=== PATIENT | female | born 1965 | race African-American/Black ===

== ENCOUNTER 2018-04-07 14:47 | Inpatient (IN) | payer OTHER ==
[2018-04-07 18:16] VITALS: BMI 25.4
[2018-04-07] MEDS ORDERED: ACETAMINOPHEN 325 MG TABLET (FP) PO PRN (19:57)
[2018-04-07] MEDS ORDERED: guaiFENesin/D-METHORPHAN HB 10 ML UNIT-DOSE CUPS PO PRN (19:57)
[2018-04-07] MEDS ORDERED: P-EPHED 60MG/TRIPROLIDI 2.5MG TABLET PO PRN (19:57)
[2018-04-07] MEDS ORDERED: MAG HYDROX/AL HYDROX/SIMETH 30 ML UNIT-DOSE CUP PO PRN (19:57)
[2018-04-07] MEDS ORDERED: MENTHOL/PHENOL 1 EACH UD MM PRN (19:57)
[2018-04-07] MEDS ORDERED: MAGNESIUM CITRATE 300 ML BOTTLE PO PRN (19:57)
--- NOTE | 2018-04-07 19:57 | HP ---
Admission [facility] Allergies/Adverse Reactions: Allergies Allergy/AdvReac Type Severity Reaction Status Date / Time No Known Allergies Allergy Verified 04/07/18 18:03 History of Present Illness: pt here requesting rehab from crack cocaine and etoh use , s/p detox @ [facility] completed today , has d/c paperwork available for review. Reports used to drink all day x 3 years , denies seizures, blackouts , falls . tobacco use : 1 ppd , requesting nrt w/ patch pmhx : knee OA bilaterally , asthma ( hospialized , [place] ) does not have inhaler pshx :denies psych : depression, anxiety utox + bzo Shx : homeless , unemployed - Ebola screening Have you traveled outside of the country in the last 21 days: No Have you had contact with anyone from an Ebola affected area: No Have you been sick,other than usual withdrawal symptoms: No Do you have a fever: No - Review of Systems Constitutional: See HPI EENT: reports: See HPI Respiratory: reports: See HPI Cardiac: reports: No Symptoms Reported GI: reports: No Symptoms Reported : reports: No Symptoms Reported Musculoskeletal: reports: Joint Pain, Joint Swelling, Muscle Pain, Joint Stiffness Integumentary: reports: No Symptoms Reported Neuro: reports: No Symptoms reported Endocrine: reports: No Symptoms Reported Psychiatric: reports: Anxious, Depressed Patient History - Smoking Cessation Smoking history: Current every day smoker Have you smoked in the past 12 months: Yes Aproximately how many cigarettes per day: 20 Hx Chewing Tobacco Use: No Initiated information on smoking cessation: No - Substances Abused Alcohol Route: Oral Frequency: Daily Amount used: 12pk beer Age of first use: 18 Date of Last Use: 04/04/18 Crack Route: Smoking Frequency: Daily Amount used: $300 Age of first use: 19 Date of Last Use: 04/04/18 Family Disease History - Family Disease History Family History: Denies Admission Physical Exam [facility] - Vital Signs Vital Signs: Vital Signs - 24 hr 04/07/18 18:03 Temperature 97.8 F Pulse Rate 80 Respiratory 18 Rate Blood Pressure 140/80 - Physical General Appearance: Yes: No Apparent Distress, Anxious HEENTM: Yes: Hearing grossly Normal, Normocephalic, Normal Voice Respiratory: Yes: Chest Non-Tender, Lungs Clear, Normal Breath Sounds Neck: Yes: No masses,lesions,Nodules, Trachea in good position Cardiology: Yes: Regular Rhythm, Regular Rate Abdominal: Yes: Within Normal Limits Genitourinary: Yes: Within Normal Limits Back: Yes: Normal Inspection Musculoskeletal: Yes: Joint Stiffness, Other (antalgic gait, limping - has had chronic knee pain for years , known OA) Extremities: Yes: Normal Capillary Refill Neurological: Yes: Fully Oriented, Alert, Normal Response - Diagnostic (1) Alcohol dependence in early, early partial, sustained full, or sustained partial remission Current Visit: Yes Status: Acute (2) Nicotine dependence Current Visit: Yes Status: Acute BHS Breath Alcohol Content Breath Alcohol Content: 0 Urine Pregancy Test - Result Urine Test Results: Negative- NO Line Present Urine Drug Screen - Results Drug Screen Negative: No Urine Drug Screen Results: BZO-Benzodiazepines
[2018-04-07] MEDS ORDERED: traZODone HCL 50 MG TABLET (FP) PO ONE (19:59)
[2018-04-07] MEDS: NAPROXEN 500 MG TABLET (FP) PO SCH (21:57)
[2018-04-07] MEDS: THIAMINE HCL 100 MG TABLET (FP) PO SCH (21:57)
[2018-04-07] MEDS ORDERED: MELATONIN 5 MG TABLETS PO PRN (22:00)
[2018-04-08 10:08] LABS: URINE APPEARANCE SLCLOUDY; URINE BILIRUBIN NEGATIVE (<2.0 mg/dL); URINE COLOR LTYELLOW; URINE GLUCOSE (UA) NEGATIVE (NEGATIVE); URINE KETONE NEGATIVE (NEGATIVE); URINE LEUK ESTERASE NEGATIVE (NEGATIVE); URINE NITRITE NEGATIVE (NEGATIVE); URINE PROTEIN NEGATIVE (NEGATIVE); URINE UROBILINOGEN NEGATIVE mg/dL (0.2-1.0)
[2018-04-08] MEDS: NICOTINE 14 MG/24 HOURS TOPICAL PATCH TD SCH (10:21)
[2018-04-08] MEDS: PRENATAL VITAMINS W/ FOLIC ACID TABLET (FP) PO SCH (10:21)
[2018-04-08] MEDS: NAPROXEN 500 MG TABLET (FP) PO SCH ×2 (10:21→21:04)
[2018-04-08] MEDS: VITAMINS A AND D TOPICAL OINTMENT 60 GM TUBE TP SCH ×2 (12:28→17:33)
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
[2018-04-08] MEDS ORDERED: TUBERCULIN PPD 5 TU/0.1ML VIAL ID ONE (13:58)
[2018-04-08 15:13] LABS: HEMATOCRIT 36.8 % (32.4-45.2); HEMOGLOBIN 11.9 GM/dL (10.7-15.3); MCH 30.4 pg (25.7-33.7); MCHC 32.3 g/dl (32.0-36.0); MEAN PLT VOLUME 8.9 fl (7.5-11.1); PLATELET COUNT 188 K/MM3 (134-434); RBC 3.91 M/mm3 (3.60-5.2); RDW 13.7 % (11.6-15.6); WHITE BLOOD COUNT 4.2 K/mm3 (4.0-10.0)
[2018-04-08 15:18] LABS: ALBUMIN 3.3 g/dl (3.4-5.0); ALK PHOS 83 U/L (45-117); ANION GAP 11 MMOL/L (8-16); BILIRUBIN,TOTAL 0.3 mg/dL (0.2-1); BLOOD UREA NITROGEN 12 mg/dL (7-18); CALCIUM 8.4 mg/dL (8.5-10.1); CHLORIDE 107 mmol/L (98-107); CO2 24 mmol/L (21-32); GLUCOSE,RANDOM 111 mg/dL (74-106); POTASSIUM 4.1 mmol/L (3.5-5.1); SGOT/AST 50 U/L (15-37); SGPT/ALT 89 U/L (13-61); SODIUM 141 mmol/L (136-145); TOT PROT 6.7 g/dl (6.4-8.2)
[2018-04-08] MEDS: QUEtiapine FUMARATE 50 MG TABLET PO SCH (21:04)
[2018-04-08] MEDS: THIAMINE HCL 100 MG TABLET (FP) PO SCH (21:04)
[2018-04-08] MEDS: traZODone HCL 50 MG TABLET (FP) PO SCH (21:04)
[2018-04-09] MEDS: VITAMINS A AND D TOPICAL OINTMENT 60 GM TUBE TP SCH ×4 (00:23→19:13)
[2018-04-09] MEDS: PRENATAL VITAMINS W/ FOLIC ACID TABLET (FP) PO SCH (10:06)
[2018-04-09] MEDS: NICOTINE 14 MG/24 HOURS TOPICAL PATCH TD SCH (10:06)
[2018-04-09] MEDS: NAPROXEN 500 MG TABLET (FP) PO SCH ×2 (10:06→21:02)
[2018-04-09] MEDS: LORATADINE 10 MG TABLET PO SCH (16:02)
[2018-04-09] MEDS: THIAMINE HCL 100 MG TABLET (FP) PO SCH (21:03)
[2018-04-09] MEDS: traZODone HCL 50 MG TABLET (FP) PO SCH (21:03)
[2018-04-09] MEDS: QUEtiapine FUMARATE 50 MG TABLET PO SCH (22:06)
[2018-04-10] MEDS: VITAMINS A AND D TOPICAL OINTMENT 60 GM TUBE TP SCH ×4 (00:39→18:00)
[2018-04-10] MEDS: hydrOXYzine PAMOATE 25 MG CAPSULE (FP) PO PRN ×2 (03:17→21:27)
[2018-04-10] MEDS: NICOTINE 14 MG/24 HOURS TOPICAL PATCH TD SCH (10:11)
[2018-04-10] MEDS: PRENATAL VITAMINS W/ FOLIC ACID TABLET (FP) PO SCH (10:11)
[2018-04-10] MEDS: NAPROXEN 500 MG TABLET (FP) PO SCH ×2 (10:11→21:27)
[2018-04-10] MEDS: LORATADINE 10 MG TABLET PO SCH (10:11)
[2018-04-10] MEDS: THIAMINE HCL 100 MG TABLET (FP) PO SCH (21:27)
[2018-04-10] MEDS: traZODone HCL 50 MG TABLET (FP) PO SCH (21:27)
[2018-04-10] MEDS: QUEtiapine FUMARATE 50 MG TABLET PO SCH (21:27)
[2018-04-11] MEDS: VITAMINS A AND D TOPICAL OINTMENT 60 GM TUBE TP SCH ×4 (06:18→18:00)
[2018-04-11] MEDS: NAPROXEN 500 MG TABLET (FP) PO SCH ×2 (10:08→21:03)
[2018-04-11] MEDS: NICOTINE 14 MG/24 HOURS TOPICAL PATCH TD SCH (10:08)
[2018-04-11] MEDS: LORATADINE 10 MG TABLET PO SCH (10:08)
[2018-04-11] MEDS: PRENATAL VITAMINS W/ FOLIC ACID TABLET (FP) PO SCH (10:08)
[2018-04-11] MEDS: hydrOXYzine PAMOATE 25 MG CAPSULE (FP) PO PRN ×2 (10:09→21:03)
[2018-04-11] MEDS: THIAMINE HCL 100 MG TABLET (FP) PO SCH (21:03)
[2018-04-11] MEDS: traZODone HCL 50 MG TABLET (FP) PO SCH (21:03)
[2018-04-11] MEDS: QUEtiapine FUMARATE 50 MG TABLET PO SCH (21:04)
[2018-04-12] MEDS: VITAMINS A AND D TOPICAL OINTMENT 60 GM TUBE TP SCH ×4 (05:53→17:58)
[2018-04-12] MEDS: ALBUTEROL SO4 8 GM HFA INHALER IH PRN (07:20)
[2018-04-12] MEDS: PRENATAL VITAMINS W/ FOLIC ACID TABLET (FP) PO SCH (10:21)
[2018-04-12] MEDS: LORATADINE 10 MG TABLET PO SCH (10:21)
[2018-04-12] MEDS: NAPROXEN 500 MG TABLET (FP) PO SCH ×2 (10:21→21:06)
[2018-04-12] MEDS: NICOTINE 14 MG/24 HOURS TOPICAL PATCH TD SCH (10:21)
[2018-04-12] MEDS: hydrOXYzine PAMOATE 25 MG CAPSULE (FP) PO PRN (21:06)
[2018-04-12] MEDS: THIAMINE HCL 100 MG TABLET (FP) PO SCH (21:06)
[2018-04-12] MEDS: QUEtiapine FUMARATE 50 MG TABLET PO SCH (21:06)
[2018-04-12] MEDS: traZODone HCL 50 MG TABLET (FP) PO SCH (21:06)
[2018-04-12] MEDS: MAGNESIUM HYDROX 2400MG/30ML ORAL SUSPENSION 30 ML CUP PO PRN (21:06)
[2018-04-13] MEDS: VITAMINS A AND D TOPICAL OINTMENT 60 GM TUBE TP SCH ×4 (00:31→18:35)
[2018-04-13] MEDS: NAPROXEN 500 MG TABLET (FP) PO SCH ×2 (10:28→21:13)
[2018-04-13] MEDS: PRENATAL VITAMINS W/ FOLIC ACID TABLET (FP) PO SCH (10:28)
[2018-04-13] MEDS: LORATADINE 10 MG TABLET PO SCH (10:28)
[2018-04-13] MEDS: hydrOXYzine PAMOATE 25 MG CAPSULE (FP) PO PRN ×2 (10:28→21:14)
[2018-04-13] MEDS: NICOTINE 14 MG/24 HOURS TOPICAL PATCH TD SCH (10:28)
[2018-04-13] MEDS: THIAMINE HCL 100 MG TABLET (FP) PO SCH (21:12)
[2018-04-13] MEDS: QUEtiapine FUMARATE 50 MG TABLET PO SCH (21:13)
[2018-04-13] MEDS: traZODone HCL 50 MG TABLET (FP) PO SCH (21:13)
[2018-04-14] MEDS: VITAMINS A AND D TOPICAL OINTMENT 60 GM TUBE TP SCH ×3 (06:24→18:00)
[2018-04-14] MEDS: PRENATAL VITAMINS W/ FOLIC ACID TABLET (FP) PO SCH (10:09)
[2018-04-14] MEDS: NAPROXEN 500 MG TABLET (FP) PO SCH ×2 (10:09→22:51)
[2018-04-14] MEDS: NICOTINE 14 MG/24 HOURS TOPICAL PATCH TD SCH (10:09)
[2018-04-14] MEDS: LORATADINE 10 MG TABLET PO SCH (10:09)
[2018-04-14] MEDS: QUEtiapine FUMARATE 50 MG TABLET PO SCH (21:06)
[2018-04-14] MEDS: traZODone HCL 50 MG TABLET (FP) PO SCH (21:06)
[2018-04-14] MEDS: hydrOXYzine PAMOATE 25 MG CAPSULE (FP) PO PRN (21:06)
[2018-04-14] MEDS: THIAMINE HCL 100 MG TABLET (FP) PO SCH (21:06)
[2018-04-15] MEDS: VITAMINS A AND D TOPICAL OINTMENT 60 GM TUBE TP SCH ×4 (06:27→17:26)
[2018-04-15] MEDS: LORATADINE 10 MG TABLET PO SCH (09:53)
[2018-04-15] MEDS: NAPROXEN 500 MG TABLET (FP) PO SCH ×2 (09:53→21:11)
[2018-04-15] MEDS: NICOTINE 14 MG/24 HOURS TOPICAL PATCH TD SCH (09:53)
[2018-04-15] MEDS: PRENATAL VITAMINS W/ FOLIC ACID TABLET (FP) PO SCH (09:53)
[2018-04-15] MEDS: traZODone HCL 50 MG TABLET (FP) PO SCH (21:11)
[2018-04-15] MEDS: THIAMINE HCL 100 MG TABLET (FP) PO SCH (21:11)
[2018-04-15] MEDS: QUEtiapine FUMARATE 50 MG TABLET PO SCH (21:11)
[2018-04-15] MEDS: hydrOXYzine PAMOATE 25 MG CAPSULE (FP) PO PRN (21:13)
[2018-04-16] MEDS: VITAMINS A AND D TOPICAL OINTMENT 60 GM TUBE TP SCH ×3 (06:14→19:02)
[2018-04-16] MEDS: NICOTINE 14 MG/24 HOURS TOPICAL PATCH TD SCH (10:08)
[2018-04-16] MEDS: PRENATAL VITAMINS W/ FOLIC ACID TABLET (FP) PO SCH (10:08)
[2018-04-16] MEDS: NAPROXEN 500 MG TABLET (FP) PO SCH ×2 (10:08→21:02)
[2018-04-16] MEDS: LORATADINE 10 MG TABLET PO SCH (10:08)
[2018-04-16] MEDS: traZODone HCL 50 MG TABLET (FP) PO SCH (21:02)
[2018-04-16] MEDS: THIAMINE HCL 100 MG TABLET (FP) PO SCH (21:02)
[2018-04-16] MEDS: QUEtiapine FUMARATE 50 MG TABLET PO SCH (21:02)
[2018-04-16] MEDS: hydrOXYzine PAMOATE 25 MG CAPSULE (FP) PO PRN (21:03)
[2018-04-17] MEDS: VITAMINS A AND D TOPICAL OINTMENT 60 GM TUBE TP SCH ×4 (06:10→21:17)
[2018-04-17] MEDS: PRENATAL VITAMINS W/ FOLIC ACID TABLET (FP) PO SCH (10:05)
[2018-04-17] MEDS: NAPROXEN 500 MG TABLET (FP) PO SCH ×2 (10:05→21:19)
[2018-04-17] MEDS: LORATADINE 10 MG TABLET PO SCH (10:05)
[2018-04-17] MEDS: NICOTINE 14 MG/24 HOURS TOPICAL PATCH TD SCH (10:05)
[2018-04-17] MEDS: hydrOXYzine PAMOATE 25 MG CAPSULE (FP) PO PRN ×2 (10:06→21:19)
[2018-04-17] MEDS: QUEtiapine FUMARATE 50 MG TABLET PO SCH (21:19)
[2018-04-17] MEDS: traZODone HCL 50 MG TABLET (FP) PO SCH (21:19)
[2018-04-17] MEDS: THIAMINE HCL 100 MG TABLET (FP) PO SCH (21:19)
[2018-04-18] MEDS: VITAMINS A AND D TOPICAL OINTMENT 60 GM TUBE TP SCH ×4 (00:55→17:45)
[2018-04-18] MEDS: LORATADINE 10 MG TABLET PO SCH (09:56)
[2018-04-18] MEDS: NAPROXEN 500 MG TABLET (FP) PO SCH ×2 (09:56→21:55)
[2018-04-18] MEDS: NICOTINE 14 MG/24 HOURS TOPICAL PATCH TD SCH (09:56)
[2018-04-18] MEDS: PRENATAL VITAMINS W/ FOLIC ACID TABLET (FP) PO SCH (09:56)
[2018-04-18] MEDS: THIAMINE HCL 100 MG TABLET (FP) PO SCH (21:55)
[2018-04-18] MEDS: traZODone HCL 50 MG TABLET (FP) PO SCH (21:55)
[2018-04-18] MEDS: QUEtiapine FUMARATE 50 MG TABLET PO SCH (21:55)
[2018-04-18] MEDS: hydrOXYzine PAMOATE 25 MG CAPSULE (FP) PO PRN (21:56)
[2018-04-19] MEDS: VITAMINS A AND D TOPICAL OINTMENT 60 GM TUBE TP SCH ×4 (01:04→18:04)
[2018-04-19] MEDS: PRENATAL VITAMINS W/ FOLIC ACID TABLET (FP) PO SCH (09:23)
[2018-04-19] MEDS: LORATADINE 10 MG TABLET PO SCH (09:23)
[2018-04-19] MEDS: NAPROXEN 500 MG TABLET (FP) PO SCH ×2 (09:23→21:08)
[2018-04-19] MEDS: NICOTINE 14 MG/24 HOURS TOPICAL PATCH TD SCH (09:23)
[2018-04-19] MEDS: THIAMINE HCL 100 MG TABLET (FP) PO SCH (21:08)
[2018-04-19] MEDS: QUEtiapine FUMARATE 50 MG TABLET PO SCH (21:08)
[2018-04-19] MEDS: traZODone HCL 50 MG TABLET (FP) PO SCH (21:08)
[2018-04-20] MEDS: VITAMINS A AND D TOPICAL OINTMENT 60 GM TUBE TP SCH ×4 (06:30→18:00)
[2018-04-20] MEDS: NAPROXEN 500 MG TABLET (FP) PO SCH ×2 (10:09→21:06)
[2018-04-20] MEDS: PRENATAL VITAMINS W/ FOLIC ACID TABLET (FP) PO SCH (10:09)
[2018-04-20] MEDS: LORATADINE 10 MG TABLET PO SCH (10:09)
[2018-04-20] MEDS: NICOTINE 14 MG/24 HOURS TOPICAL PATCH TD SCH (10:09)
[2018-04-20] MEDS: hydrOXYzine PAMOATE 25 MG CAPSULE (FP) PO PRN ×2 (10:10→21:06)
[2018-04-20] MEDS: QUEtiapine FUMARATE 50 MG TABLET PO SCH (21:06)
[2018-04-20] MEDS: THIAMINE HCL 100 MG TABLET (FP) PO SCH (21:06)
[2018-04-20] MEDS: traZODone HCL 50 MG TABLET (FP) PO SCH (21:06)
[2018-04-21] MEDS: VITAMINS A AND D TOPICAL OINTMENT 60 GM TUBE TP SCH ×4 (06:23→19:10)
[2018-04-21] MEDS: PRENATAL VITAMINS W/ FOLIC ACID TABLET (FP) PO SCH (09:57)
[2018-04-21] MEDS: NICOTINE 14 MG/24 HOURS TOPICAL PATCH TD SCH (09:58)
[2018-04-21] MEDS: hydrOXYzine PAMOATE 25 MG CAPSULE (FP) PO PRN ×2 (09:58→21:09)
[2018-04-21] MEDS: NAPROXEN 500 MG TABLET (FP) PO SCH ×2 (09:58→21:06)
[2018-04-21] MEDS: LORATADINE 10 MG TABLET PO SCH (09:58)
[2018-04-21] MEDS ORDERED: FLU VACCINE QUAD 60 MCG/0.5 ML (MDV 18-19) IM ONE (12:00)
[2018-04-21] MEDS: THIAMINE HCL 100 MG TABLET (FP) PO SCH (21:05)
[2018-04-21] MEDS: traZODone HCL 50 MG TABLET (FP) PO SCH (21:06)
[2018-04-21] MEDS: QUEtiapine FUMARATE 50 MG TABLET PO SCH (21:06)
[2018-04-22] MEDS: VITAMINS A AND D TOPICAL OINTMENT 60 GM TUBE TP SCH ×4 (06:47→23:37)
[2018-04-22] MEDS: hydrOXYzine PAMOATE 25 MG CAPSULE (FP) PO PRN ×2 (07:47→21:02)
[2018-04-22] MEDS: NAPROXEN 500 MG TABLET (FP) PO SCH ×2 (10:05→21:01)
[2018-04-22] MEDS: PRENATAL VITAMINS W/ FOLIC ACID TABLET (FP) PO SCH (10:05)
[2018-04-22] MEDS: LORATADINE 10 MG TABLET PO SCH (10:05)
[2018-04-22] MEDS: NICOTINE 14 MG/24 HOURS TOPICAL PATCH TD SCH (10:06)
[2018-04-22] MEDS: THIAMINE HCL 100 MG TABLET (FP) PO SCH (21:01)
[2018-04-22] MEDS: QUEtiapine FUMARATE 50 MG TABLET PO SCH (21:01)
[2018-04-22] MEDS: traZODone HCL 50 MG TABLET (FP) PO SCH (21:02)
[2018-04-23] MEDS: VITAMINS A AND D TOPICAL OINTMENT 60 GM TUBE TP SCH ×4 (00:19→17:56)
[2018-04-23] MEDS: MAGNESIUM HYDROX 2400MG/30ML ORAL SUSPENSION 30 ML CUP PO PRN (07:36)
[2018-04-23] MEDS: PRENATAL VITAMINS W/ FOLIC ACID TABLET (FP) PO SCH (09:52)
[2018-04-23] MEDS: NICOTINE 14 MG/24 HOURS TOPICAL PATCH TD SCH (09:52)
[2018-04-23] MEDS: LORATADINE 10 MG TABLET PO SCH (09:52)
[2018-04-23] MEDS: NAPROXEN 500 MG TABLET (FP) PO SCH ×2 (09:52→21:05)
[2018-04-23] MEDS: hydrOXYzine PAMOATE 25 MG CAPSULE (FP) PO PRN ×2 (09:53→21:06)
[2018-04-23] MEDS: ALBUTEROL SO4 8 GM HFA INHALER IH PRN (20:36)
[2018-04-23] MEDS: traZODone HCL 50 MG TABLET (FP) PO SCH (21:05)
[2018-04-23] MEDS: THIAMINE HCL 100 MG TABLET (FP) PO SCH (21:05)
[2018-04-23] MEDS: QUEtiapine FUMARATE 50 MG TABLET PO SCH (21:07)
[2018-04-24] MEDS: VITAMINS A AND D TOPICAL OINTMENT 60 GM TUBE TP SCH ×4 (00:08→17:10)
[2018-04-24] MEDS: NAPROXEN 500 MG TABLET (FP) PO SCH ×2 (10:09→21:05)
[2018-04-24] MEDS: PRENATAL VITAMINS W/ FOLIC ACID TABLET (FP) PO SCH (10:09)
[2018-04-24] MEDS: LORATADINE 10 MG TABLET PO SCH (10:09)
[2018-04-24] MEDS: NICOTINE 14 MG/24 HOURS TOPICAL PATCH TD SCH (10:10)
[2018-04-24] MEDS ORDERED: PT OWN MED DRAWER 7, Y5N ONE (20:12)
[2018-04-24] MEDS: ALBUTEROL SO4 8 GM HFA INHALER IH PRN (20:13)
[2018-04-24] MEDS: THIAMINE HCL 100 MG TABLET (FP) PO SCH (21:05)
[2018-04-24] MEDS: QUEtiapine FUMARATE 50 MG TABLET PO SCH (21:05)
[2018-04-24] MEDS: traZODone HCL 50 MG TABLET (FP) PO SCH (21:05)
[2018-04-24] MEDS: hydrOXYzine PAMOATE 25 MG CAPSULE (FP) PO PRN (21:06)
[2018-04-25] MEDS: VITAMINS A AND D TOPICAL OINTMENT 60 GM TUBE TP SCH ×5 (00:04→23:50)
[2018-04-25] MEDS: hydrOXYzine PAMOATE 25 MG CAPSULE (FP) PO PRN ×2 (10:30→21:08)
[2018-04-25] MEDS: NICOTINE POLACRILEX 2 MG GUM BUC PRN (10:30)
[2018-04-25] MEDS: LORATADINE 10 MG TABLET PO SCH (10:30)
[2018-04-25] MEDS: NICOTINE 14 MG/24 HOURS TOPICAL PATCH TD SCH (10:30)
[2018-04-25] MEDS: NAPROXEN 500 MG TABLET (FP) PO SCH ×2 (10:30→21:08)
[2018-04-25] MEDS: PRENATAL VITAMINS W/ FOLIC ACID TABLET (FP) PO SCH (10:30)
[2018-04-25] MEDS: ALBUTEROL SO4 8 GM HFA INHALER IH PRN (19:43)
[2018-04-25] MEDS: traZODone HCL 50 MG TABLET (FP) PO SCH (21:08)
[2018-04-25] MEDS: THIAMINE HCL 100 MG TABLET (FP) PO SCH (21:08)
[2018-04-25] MEDS: QUEtiapine FUMARATE 50 MG TABLET PO SCH (21:08)
[2018-04-26] MEDS: VITAMINS A AND D TOPICAL OINTMENT 60 GM TUBE TP SCH ×4 (07:12→23:41)
[2018-04-26] MEDS: LORATADINE 10 MG TABLET PO SCH (10:17)
[2018-04-26] MEDS: PRENATAL VITAMINS W/ FOLIC ACID TABLET (FP) PO SCH (10:17)
[2018-04-26] MEDS: hydrOXYzine PAMOATE 25 MG CAPSULE (FP) PO PRN ×2 (10:17→21:04)
[2018-04-26] MEDS: NAPROXEN 500 MG TABLET (FP) PO SCH ×2 (10:17→21:04)
[2018-04-26] MEDS: NICOTINE 14 MG/24 HOURS TOPICAL PATCH TD SCH (10:17)
[2018-04-26] MEDS: QUEtiapine FUMARATE 50 MG TABLET PO SCH (21:04)
[2018-04-26] MEDS: traZODone HCL 50 MG TABLET (FP) PO SCH (21:04)
[2018-04-26] MEDS: THIAMINE HCL 100 MG TABLET (FP) PO SCH (21:04)
[2018-04-26] MEDS: ALBUTEROL SO4 8 GM HFA INHALER IH PRN (21:05)
[2018-04-27] MEDS: VITAMINS A AND D TOPICAL OINTMENT 60 GM TUBE TP SCH ×3 (06:36→18:00)
[2018-04-27] MEDS: NICOTINE 14 MG/24 HOURS TOPICAL PATCH TD SCH (10:29)
[2018-04-27] MEDS: NAPROXEN 500 MG TABLET (FP) PO SCH ×2 (10:29→21:03)
[2018-04-27] MEDS: PRENATAL VITAMINS W/ FOLIC ACID TABLET (FP) PO SCH (10:29)
[2018-04-27] MEDS: LORATADINE 10 MG TABLET PO SCH (10:29)
[2018-04-27] MEDS: hydrOXYzine PAMOATE 25 MG CAPSULE (FP) PO PRN ×2 (10:31→21:05)
[2018-04-27] MEDS: THIAMINE HCL 100 MG TABLET (FP) PO SCH (21:03)
[2018-04-27] MEDS: QUEtiapine FUMARATE 50 MG TABLET PO SCH (21:03)
[2018-04-27] MEDS: traZODone HCL 50 MG TABLET (FP) PO SCH (21:03)
[2018-04-28] MEDS: VITAMINS A AND D TOPICAL OINTMENT 60 GM TUBE TP SCH ×5 (06:35→23:30)
[2018-04-28] MEDS: NAPROXEN 500 MG TABLET (FP) PO SCH ×2 (09:51→21:07)
[2018-04-28] MEDS: LORATADINE 10 MG TABLET PO SCH (09:51)
[2018-04-28] MEDS: NICOTINE 14 MG/24 HOURS TOPICAL PATCH TD SCH (09:51)
[2018-04-28] MEDS: PRENATAL VITAMINS W/ FOLIC ACID TABLET (FP) PO SCH (09:51)
[2018-04-28] MEDS: hydrOXYzine PAMOATE 25 MG CAPSULE (FP) PO PRN ×2 (09:51→21:07)
[2018-04-28] MEDS: NICOTINE POLACRILEX 2 MG GUM BUC PRN (09:52)
[2018-04-28] MEDS: traZODone HCL 50 MG TABLET (FP) PO SCH (21:07)
[2018-04-28] MEDS: QUEtiapine FUMARATE 50 MG TABLET PO SCH (21:07)
[2018-04-28] MEDS: THIAMINE HCL 100 MG TABLET (FP) PO SCH (21:08)
[2018-04-29] MEDS: VITAMINS A AND D TOPICAL OINTMENT 60 GM TUBE TP SCH ×3 (06:31→17:28)
[2018-04-29] MEDS: PRENATAL VITAMINS W/ FOLIC ACID TABLET (FP) PO SCH (09:54)
[2018-04-29] MEDS: LORATADINE 10 MG TABLET PO SCH (09:55)
[2018-04-29] MEDS: NICOTINE POLACRILEX 2 MG GUM BUC PRN (09:55)
[2018-04-29] MEDS: hydrOXYzine PAMOATE 25 MG CAPSULE (FP) PO PRN ×2 (09:55→21:09)
[2018-04-29] MEDS: NAPROXEN 500 MG TABLET (FP) PO SCH ×2 (09:55→21:08)
[2018-04-29] MEDS: NICOTINE 14 MG/24 HOURS TOPICAL PATCH TD SCH (09:55)
[2018-04-29] MEDS: QUEtiapine FUMARATE 50 MG TABLET PO SCH (21:08)
[2018-04-29] MEDS: THIAMINE HCL 100 MG TABLET (FP) PO SCH (21:08)
[2018-04-29] MEDS: traZODone HCL 50 MG TABLET (FP) PO SCH (21:09)
[2018-04-30] MEDS: VITAMINS A AND D TOPICAL OINTMENT 60 GM TUBE TP SCH ×5 (06:44→23:47)
[2018-04-30] MEDS: hydrOXYzine PAMOATE 25 MG CAPSULE (FP) PO PRN ×2 (09:53→21:07)
[2018-04-30] MEDS: NAPROXEN 500 MG TABLET (FP) PO SCH ×2 (09:53→21:07)
[2018-04-30] MEDS: NICOTINE 14 MG/24 HOURS TOPICAL PATCH TD SCH (09:53)
[2018-04-30] MEDS: PRENATAL VITAMINS W/ FOLIC ACID TABLET (FP) PO SCH (09:53)
[2018-04-30] MEDS: LORATADINE 10 MG TABLET PO SCH (09:53)
[2018-04-30] MEDS: NICOTINE POLACRILEX 2 MG GUM BUC PRN (09:56)
[2018-04-30] MEDS: THIAMINE HCL 100 MG TABLET (FP) PO SCH (21:06)
[2018-04-30] MEDS: traZODone HCL 50 MG TABLET (FP) PO SCH (21:06)
[2018-04-30] MEDS: QUEtiapine FUMARATE 50 MG TABLET PO SCH (21:07)
[2018-05-01] MEDS: VITAMINS A AND D TOPICAL OINTMENT 60 GM TUBE TP SCH ×4 (06:28→23:40)
[2018-05-01] MEDS: NICOTINE 14 MG/24 HOURS TOPICAL PATCH TD SCH (10:03)
[2018-05-01] MEDS: NAPROXEN 500 MG TABLET (FP) PO SCH ×2 (10:03→21:26)
[2018-05-01] MEDS: PRENATAL VITAMINS W/ FOLIC ACID TABLET (FP) PO SCH (10:03)
[2018-05-01] MEDS: LORATADINE 10 MG TABLET PO SCH (10:03)
[2018-05-01] MEDS: hydrOXYzine PAMOATE 25 MG CAPSULE (FP) PO PRN ×2 (10:04→21:26)
[2018-05-01] MEDS: METHYL SALICYLATE/MENTHOL OINT 30 GM TUBE TP SCH (21:25)
[2018-05-01] MEDS: THIAMINE HCL 100 MG TABLET (FP) PO SCH (21:26)
[2018-05-01] MEDS ORDERED: PT OWN MED DRAWER 7, Y5N ONE (21:26)
[2018-05-01] MEDS: traZODone HCL 50 MG TABLET (FP) PO SCH (21:26)
[2018-05-01] MEDS: QUEtiapine FUMARATE 50 MG TABLET PO SCH (21:26)
[2018-05-02] MEDS: VITAMINS A AND D TOPICAL OINTMENT 60 GM TUBE TP SCH ×3 (06:23→17:58)
[2018-05-02] MEDS: PRENATAL VITAMINS W/ FOLIC ACID TABLET (FP) PO SCH (09:39)
[2018-05-02] MEDS: NICOTINE 14 MG/24 HOURS TOPICAL PATCH TD SCH (09:39)
[2018-05-02] MEDS: NAPROXEN 500 MG TABLET (FP) PO SCH ×2 (09:39→21:07)
[2018-05-02] MEDS: LORATADINE 10 MG TABLET PO SCH (09:39)
[2018-05-02] MEDS: hydrOXYzine PAMOATE 25 MG CAPSULE (FP) PO PRN ×2 (09:40→21:07)
[2018-05-02] MEDS: METHYL SALICYLATE/MENTHOL OINT 30 GM TUBE TP SCH ×2 (09:40→21:08)
[2018-05-02] MEDS: THIAMINE HCL 100 MG TABLET (FP) PO SCH (21:07)
[2018-05-02] MEDS: QUEtiapine FUMARATE 50 MG TABLET PO SCH (21:07)
[2018-05-02] MEDS: traZODone HCL 50 MG TABLET (FP) PO SCH (21:07)
[2018-05-02] MEDS: MAGNESIUM HYDROX 2400MG/30ML ORAL SUSPENSION 30 ML CUP PO PRN (21:07)
[2018-05-03] MEDS: VITAMINS A AND D TOPICAL OINTMENT 60 GM TUBE TP SCH ×4 (00:03→20:45)
[2018-05-03] MEDS: NICOTINE 14 MG/24 HOURS TOPICAL PATCH TD SCH (09:48)
[2018-05-03] MEDS: hydrOXYzine PAMOATE 25 MG CAPSULE (FP) PO PRN ×2 (09:48→21:05)
[2018-05-03] MEDS: LORATADINE 10 MG TABLET PO SCH (09:48)
[2018-05-03] MEDS: METHYL SALICYLATE/MENTHOL OINT 30 GM TUBE TP SCH ×2 (09:49→22:29)
[2018-05-03] MEDS: NAPROXEN 500 MG TABLET (FP) PO SCH ×2 (09:49→21:04)
[2018-05-03] MEDS: PRENATAL VITAMINS W/ FOLIC ACID TABLET (FP) PO SCH (09:49)
[2018-05-03] MEDS ORDERED: PT OWN MED DRAWER 7, Y5N ONE (09:50)
[2018-05-03] MEDS: THIAMINE HCL 100 MG TABLET (FP) PO SCH (21:04)
[2018-05-03] MEDS: traZODone HCL 50 MG TABLET (FP) PO SCH (21:04)
[2018-05-03] MEDS: QUEtiapine FUMARATE 50 MG TABLET PO SCH (21:04)
[2018-05-04] MEDS: VITAMINS A AND D TOPICAL OINTMENT 60 GM TUBE TP SCH ×4 (06:03→17:06)
[2018-05-04] MEDS: METHYL SALICYLATE/MENTHOL OINT 30 GM TUBE TP SCH ×2 (09:54→21:08)
[2018-05-04] MEDS: NAPROXEN 500 MG TABLET (FP) PO SCH ×2 (09:54→21:07)
[2018-05-04] MEDS: LORATADINE 10 MG TABLET PO SCH (09:54)
[2018-05-04] MEDS: PRENATAL VITAMINS W/ FOLIC ACID TABLET (FP) PO SCH (09:54)
[2018-05-04] MEDS: NICOTINE 14 MG/24 HOURS TOPICAL PATCH TD SCH (09:54)
[2018-05-04] MEDS: hydrOXYzine PAMOATE 25 MG CAPSULE (FP) PO PRN ×2 (09:55→21:07)
--- NOTE | 2018-05-04 11:46 | PN ---
Psychiatric Progress Note Vital Signs: Vital Signs Period Temp Pulse Resp BP Sys/Grant Pulse Ox Last 24 Hr 98.0 F 76 18-18 107/69 Date of Session: 05/04/18 Chief Complaint:: Discharge Note HPI: Patient addressing Alcohol and Cocaine Dependence comorbid with Nicotine Dependence and Substance-Induced Mood Disorder ROS: Chronic arthritis, Asthma Current Medications: Active Medications Generic Name Dose Route Start Last Admin Trade Name Freq PRN Reason Stop Dose Admin Al Hydroxide/Mg Hydroxide 30 ml 04/07/18 19:57 Mylanta Oral Suspension - PO Q6H PRN DYSPEPSIA Albuterol Sulfate 2 puff 04/07/18 19:59 04/26/18 21:05 Ventolin Hfa Inhaler - IH 2 puff Q4H PRN Administration ASTHMA Eucalyptus/Menthol/Phenol/Sorbitol 1 each 04/07/18 19:57 Cepastat Lozenge - MM Q4H PRN SORE THROAT Guaifenesin 10 ml 04/07/18 19:57 Robitussin Dm - PO Q6H PRN COUGH Hydroxyzine Pamoate 25 mg 04/07/18 19:57 05/04/18 09:55 Vistaril - PO 25 mg Q4H PRN Administration AGITATION Loratadine 10 mg 04/09/18 15:15 05/04/18 09:54 Claritin - PO 10 mg DAILY ELIU Administration Magnesium Citrate 300 ml 04/07/18 19:57 Citroma - PO Q48H PRN CONSTIPATION Magnesium Hydroxide 30 ml 04/07/18 19:57 05/02/18 21:07 Milk Of Magnesia - PO 30 ml DAILY PRN Administration CONSTIPATION Melatonin 5 mg 04/07/18 22:00 04/19/18 21:08 Melatonin PO 5 mg HS PRN Administration INSOMNIA Methyl Salicylate 1 applic 05/01/18 22:00 05/04/18 09:54 Luis Carlos-Leggett - TP Not Given BID ELIU Naproxen 500 mg 04/07/18 22:00 05/04/18 09:54 Naprosyn - PO 500 mg BID ELIU Administration Nicotine 14 mg 04/08/18 10:00 05/04/18 09:54 Nicoderm Patch - TD 14 mg DAILY ELIU Administration Nicotine Polacrilex 2 mg 04/07/18 19:57 04/30/18 09:56 Nicorette Gum - BUC 2 mg Q2H PRN Administration NICOTINE REPLACEMENT RX Multivit/Folic Acid/Iron 1 tab 04/08/18 10:00 05/04/18 09:54 Vitamins (Sjr) - PO 1 tab DAILY ELIU Administration Pseudoephedrine/Triprolidine 1 combo 04/07/18 19:57 04/19/18 06:39 Actifed - PO 1 combo TID PRN Administration NASAL CONGESTION Quetiapine Fumarate 50 mg 04/08/18 22:00 05/03/18 21:04 Seroquel - PO 50 mg HS ELIU Administration Thiamine HCl 100 mg 04/07/18 22:00 05/03/18 21:04 Vitamin B1 - PO 100 mg HS ELIU Administration Trazodone HCl 50 mg 04/08/18 22:00 05/03/18 21:04 Desyrel - PO 50 mg HS ELIU Administration Vitamin A/Vitamin D 1 applic 04/08/18 12:00 05/04/18 06:03 Vitamin A & D Top Oint - TP Not Given Q6HPO ELIU Current Side Effect: No Lab tests ordered: Yes Lab tests reviewed: Yes Provider note:: Patient will complete this program on 05/05/18. She has met her treatment goals and will continue to address her issues in outpatient treatment at [facility]. Told lyric writer that from her participation in this program, she has learned the importance of making meetings and get a sponsor. She responded well to Trazadone 50 mg po HS and Seroquel 50 mg po HS. Scripts for these medications will be electronically transmitted to [facility] at [address] [place] [address]. She is stablefor discharge on 05/05/18 Total face to face time:: 35 Mental Status Exam - Mental Status Exam Alert and Oriented to: Time, Place, Person Cognitive Function: Fair Patient Appearance: Well Groomed Mood: Hopeful, Euthymic Affect: Appropriate Patient Behavior: Cooperative Speech Pattern: Clear Voice Loudness: Normal Thought Process: Intact, Goal Oriented Thought Disorder: Not Present Hallucinations: Denies Suicidal Ideation: Denies Homicidal Ideation: Denies Insight/Judgement: Fair Sleep: Fair Appetite: Good Muscle strength/Tone: Normal Gait/Station: Normal Psychiatric Treatment Plan - Problem List (1) Alcohol dependence Current Visit: Yes (2) Cocaine dependence Current Visit: Yes (3) Nicotine dependence Current Visit: Yes (4) Substance induced mood disorder Current Visit: Yes (5) Bronchial asthma Current Visit: Yes (6) Chronic arthritis Current Visit: Yes Initial treatment plan: Patient will be discharged tomorrow and referred to [facility] for outpatient treatment
[2018-05-04] MEDS: QUEtiapine FUMARATE 50 MG TABLET PO SCH (21:07)
[2018-05-04] MEDS: traZODone HCL 50 MG TABLET (FP) PO SCH (21:07)
[2018-05-04] MEDS: THIAMINE HCL 100 MG TABLET (FP) PO SCH (21:07)
[2018-05-05] MEDS: VITAMINS A AND D TOPICAL OINTMENT 60 GM TUBE TP SCH ×2 (00:47→05:59)
[2018-05-05 07:02] VITALS: BP 128/85; PULSE 85; TEMP 97.9
[2018-05-05] MEDS: METHYL SALICYLATE/MENTHOL OINT 30 GM TUBE TP SCH (09:05)
[2018-05-05] MEDS: LORATADINE 10 MG TABLET PO SCH (09:05)
[2018-05-05] MEDS: NAPROXEN 500 MG TABLET (FP) PO SCH (09:05)
[2018-05-05] MEDS: PRENATAL VITAMINS W/ FOLIC ACID TABLET (FP) PO SCH (09:05)
[2018-05-05] MEDS: NICOTINE 14 MG/24 HOURS TOPICAL PATCH TD SCH (09:06)
[2018-05-05] MEDS: hydrOXYzine PAMOATE 25 MG CAPSULE (FP) PO PRN (09:07)
== END 2018-05-05 09:10 | disposition home or self-care (01) | DRG 772 ==
LOC: YASAS 14:47 → Y3W 19:48
PROVIDERS: ADMIT Psychiatry & Neurology Psychiatry; ATTEND Psychiatry & Neurology Psychiatry
PROC: HZ42ZZZ Group Counseling for Substance Abuse Treatment, Cognitive-Behavioral (ICD-10-PCS; principal; 2018-04-07)
DX: F10.20 Alcohol dependence, uncomplicated (principal); F14.20 Cocaine dependence, uncomplicated; F17.210 Nicotine dependence, cigarettes, uncomplicated; F19.24 Other psychoactive substance dependence with psychoactive substance-induced mood disorder; J45.909 Unspecified asthma, uncomplicated; M12.9 Arthropathy, unspecified; Z59.0 Homelessness
CPT/HCPCS: 36415; 71046-TC-FY; 80053; 81003; 85027; 86593; 90688; G0008

== ENCOUNTER 2020-06-07 12:03 | Inpatient (IN) | payer OTHER ==
[2020-06-07 13:53] VITALS: BMI 28.4
[2020-06-07] MEDS ORDERED: IBUPROFEN 400 MG TABLET (FP) PO PRN (16:45)
[2020-06-07] MEDS ORDERED: NICOTINE POLACRILEX 2 MG GUM BUC PRN (16:45)
[2020-06-07] MEDS ORDERED: MAGNESIUM HYDROX 2400MG/30ML ORAL SUSPENSION 30 ML CUP PO PRN (16:45)
[2020-06-07] MEDS ORDERED: ACETAMINOPHEN 325 MG TABLET (FP) PO PRN (16:45)
[2020-06-07] MEDS ORDERED: MENTHOL/PHENOL 1 EACH UD MM PRN (16:45)
[2020-06-07] MEDS ORDERED: chlordiazePOXIDE HCL 25 MG CAPSULE PO PRN (16:45)
[2020-06-07] MEDS ORDERED: MAGNESIUM CITRATE 300 ML BOTTLE PO PRN (16:45)
[2020-06-07] MEDS ORDERED: BISMUTH SUBSALICYLATE 524 MG/30 ML UD PO PRN (16:45)
[2020-06-07] MEDS ORDERED: MAG HYDROX/AL HYDROX/SIMETH 30 ML UNIT-DOSE CUP PO PRN (16:45)
[2020-06-07] MEDS ORDERED: ONDANSETRON *ODT* 4 MG TABLET SL PRN (16:45)
[2020-06-07] MEDS ORDERED: ALBUTEROL SO4 HFA INHALER IH PRN (16:46)
[2020-06-07] MEDS: chlordiazePOXIDE HCL 25 MG CAPSULE PO SCH ×2 (17:35→22:17)
[2020-06-07] MEDS: hydrOXYzine PAMOATE 25 MG CAPSULE (FP) PO SCH ×2 (17:35→22:17)
[2020-06-07] MEDS: METHOCARBAMOL 500 MG TABLET PO PRN (17:36)
[2020-06-07] MEDS: traZODone HCL 50 MG TABLET (FP) PO SCH (22:17)
[2020-06-07] MEDS: QUEtiapine FUMARATE 50 MG TABLET PO SCH (22:17)
[2020-06-07] MEDS: MELATONIN 5 MG TABLETS PO SCH (22:17)
[2020-06-07] MEDS: THIAMINE HCL 100 MG TABLET (FP) PO SCH (22:17)
[2020-06-08] MEDS: hydrOXYzine PAMOATE 25 MG CAPSULE (FP) PO SCH (05:53)
[2020-06-08] MEDS: chlordiazePOXIDE HCL 25 MG CAPSULE PO SCH ×4 (05:53→22:15)
[2020-06-08] MEDS ORDERED: hydrOXYzine PAMOATE 25 MG CAPSULE (FP) PO PRN (09:53)
[2020-06-08] MEDS: PRENATAL VITAMINS W/ FOLIC ACID TABLET (FP) PO SCH (10:07)
[2020-06-08] MEDS: NICOTINE 14 MG/24 HOURS TOPICAL PATCH TD SCH (10:08)
[2020-06-08] MEDS: ACETAMINOPHEN 325 MG TABLET (FP) PO PRN (10:09)
[2020-06-08 11:04] LABS: HEMATOCRIT 38.7 % (32.4-45.2); MCH 31.8 pg (25.7-33.7); MCHC 33.6 g/dl (32.0-36.0); MEAN CELL VOLUME 94.8 fl (80-96); MEAN PLT VOLUME 9.2 fl (7.5-11.1); PLATELET COUNT 194 K/MM3 (134-434); RBC 4.09 M/mm3 (3.60-5.2); RDW 12.3 % (11.6-15.6); WHITE BLOOD COUNT 4.5 K/mm3 (4.0-10.0)
[2020-06-08 11:10] LABS: POTASSIUM 4.2 mmol/L (3.5-5.1)
[2020-06-08 11:28] LABS: ALBUMIN 3.7 g/dl (3.4-5.0)
[2020-06-08 11:31] LABS: CREATININE 1.2 mg/dL (0.55-1.3)
[2020-06-08 11:32] LABS: TOT PROT 7.9 g/dl (6.4-8.2)
[2020-06-08 11:37] LABS: BILIRUBIN,TOTAL 0.6 mg/dL (0.2-1)
[2020-06-08] MEDS ORDERED: FLU VACCINE (FLULAVAL) PF 60 MCG/0.5 ML SYRINGE 2020-2021 IM ONE (12:00)
[2020-06-08] MEDS: NAPROXEN 375 MG TABLET PO PRN ×3 (12:48→22:16)
[2020-06-08] MEDS: MELATONIN 5 MG TABLETS PO SCH (22:13)
[2020-06-08] MEDS: QUEtiapine FUMARATE 50 MG TABLET PO SCH (22:14)
[2020-06-08] MEDS: traZODone HCL 50 MG TABLET (FP) PO SCH (22:14)
[2020-06-08] MEDS: THIAMINE HCL 100 MG TABLET (FP) PO SCH (22:14)
[2020-06-09] MEDS: chlordiazePOXIDE HCL 25 MG CAPSULE PO SCH ×4 (05:55→22:10)
[2020-06-09] MEDS: METHOCARBAMOL 500 MG TABLET PO PRN ×2 (05:57→22:11)
[2020-06-09] MEDS: PRENATAL VITAMINS W/ FOLIC ACID TABLET (FP) PO SCH (10:00)
[2020-06-09] MEDS: NICOTINE 14 MG/24 HOURS TOPICAL PATCH TD SCH (10:00)
[2020-06-09] MEDS: NAPROXEN 375 MG TABLET PO PRN ×2 (10:41→17:17)
[2020-06-09 11:46] LABS: POTASSIUM 4.2 mmol/L (3.5-5.1)
[2020-06-09 11:49] LABS: ALBUMIN 3.4 g/dl (3.4-5.0); BLOOD UREA NITROGEN 14.9 mg/dL (7-18)
[2020-06-09 11:51] LABS: CALCIUM 8.6 mg/dL (8.5-10.1)
[2020-06-09 11:52] LABS: CREATININE 1.2 mg/dL (0.55-1.3)
[2020-06-09 11:54] LABS: BILIRUBIN,TOTAL 0.6 mg/dL (0.2-1); TOT PROT 6.8 g/dl (6.4-8.2)
[2020-06-09] MEDS ORDERED: FLU VACCINE (FLULAVAL) PF 60 MCG/0.5 ML SYRINGE 2020-2021 IM ONE (12:00)
[2020-06-09] MEDS: traZODone HCL 50 MG TABLET (FP) PO SCH (22:09)
[2020-06-09] MEDS: THIAMINE HCL 100 MG TABLET (FP) PO SCH (22:09)
[2020-06-09] MEDS: MELATONIN 5 MG TABLETS PO SCH (22:09)
[2020-06-09] MEDS: QUEtiapine FUMARATE 50 MG TABLET PO SCH (22:09)
[2020-06-10] MEDS ORDERED: chlordiazePOXIDE HCL 10 MG CAPSULE PO PRN
[2020-06-10] MEDS: NAPROXEN 375 MG TABLET PO PRN ×2 (05:43→22:03)
[2020-06-10] MEDS: chlordiazePOXIDE HCL 10 MG CAPSULE PO SCH ×4 (05:45→22:03)
[2020-06-10] MEDS: ACETAMINOPHEN 325 MG TABLET (FP) PO PRN (10:01)
[2020-06-10] MEDS: METHOCARBAMOL 500 MG TABLET PO PRN ×2 (10:01→17:13)
[2020-06-10] MEDS: PRENATAL VITAMINS W/ FOLIC ACID TABLET (FP) PO SCH (10:02)
[2020-06-10] MEDS: NICOTINE 14 MG/24 HOURS TOPICAL PATCH TD SCH (10:03)
[2020-06-10] MEDS: MELATONIN 5 MG TABLETS PO SCH (22:02)
[2020-06-10] MEDS: THIAMINE HCL 100 MG TABLET (FP) PO SCH (22:03)
[2020-06-10] MEDS: QUEtiapine FUMARATE 50 MG TABLET PO SCH (22:03)
[2020-06-10] MEDS: traZODone HCL 50 MG TABLET (FP) PO SCH (22:03)
[2020-06-11] MEDS: chlordiazePOXIDE HCL 10 MG CAPSULE PO SCH ×2 (05:48→16:51)
[2020-06-11] MEDS: METHOCARBAMOL 500 MG TABLET PO PRN ×3 (05:48→22:21)
[2020-06-11] MEDS ORDERED: MASKS NR ONE (06:05)
[2020-06-11] MEDS: PRENATAL VITAMINS W/ FOLIC ACID TABLET (FP) PO SCH (09:12)
[2020-06-11] MEDS: NAPROXEN 375 MG TABLET PO PRN (09:13)
[2020-06-11] MEDS: NICOTINE 14 MG/24 HOURS TOPICAL PATCH TD SCH (09:13)
[2020-06-11] MEDS: QUEtiapine FUMARATE 50 MG TABLET PO SCH (22:21)
[2020-06-11] MEDS: traZODone HCL 50 MG TABLET (FP) PO SCH (22:21)
[2020-06-11] MEDS: MELATONIN 5 MG TABLETS PO SCH (22:21)
[2020-06-11] MEDS: THIAMINE HCL 100 MG TABLET (FP) PO SCH (22:21)
[2020-06-12] MEDS ORDERED: chlordiazePOXIDE HCL 10 MG CAPSULE PO ONE (05:00)
[2020-06-12] MEDS: METHOCARBAMOL 500 MG TABLET PO PRN (06:31)
[2020-06-12 09:22] VITALS: BP 136/89; PULSE 87; TEMP 97.5
[2020-06-12] MEDS: NICOTINE 14 MG/24 HOURS TOPICAL PATCH TD SCH (09:29)
[2020-06-12] MEDS: PRENATAL VITAMINS W/ FOLIC ACID TABLET (FP) PO SCH (09:29)
== END 2020-06-12 12:18 | disposition other institution (70) | DRG 774 ==
LOC: YASAS 12:03 → Y3N 16:19
PROVIDERS: ADMIT Allergy & Immunology; ATTEND Allergy & Immunology
PROC: HZ2ZZZZ Detoxification Services for Substance Abuse Treatment (ICD-10-PCS; principal; 2020-06-07)
DX: F10.230 Alcohol dependence with withdrawal, uncomplicated (principal); F14.20 Cocaine dependence, uncomplicated; F17.210 Nicotine dependence, cigarettes, uncomplicated; F19.282 Other psychoactive substance dependence with psychoactive substance-induced sleep disorder; F19.24 Other psychoactive substance dependence with psychoactive substance-induced mood disorder; F41.9 Anxiety disorder, unspecified; F32.9 Major depressive disorder, single episode, unspecified; A53.0 Latent syphilis, unspecified as early or late; J45.909 Unspecified asthma, uncomplicated; M19.90 Unspecified osteoarthritis, unspecified site; R03.0 Elevated blood-pressure reading, without diagnosis of hypertension; Z59.0 Homelessness
CPT/HCPCS: 36415; 80053; 81025; 82947; 82962; 85027; 86593; 86780; 93005; 93010; C9803; G0008; Q0162; Q2036; U0003

== ENCOUNTER 2020-06-12 11:56 | Inpatient (IN) | payer OTHER ==
[2020-06-12] MEDS ORDERED: ALBUTEROL SO4 HFA INHALER IH PRN (13:56)
[2020-06-12] MEDS ORDERED: LOPERAMIDE HCL 2 MG CAPSULE PO PRN (13:57)
[2020-06-12] MEDS ORDERED: guaiFENesin 200 MG/10 ML 10 ML UNIT-DOSE CUPS PO PRN (13:57)
[2020-06-12] MEDS ORDERED: hydrOXYzine PAMOATE 25 MG CAPSULE (FP) PO PRN (13:57)
[2020-06-12] MEDS ORDERED: P-EPHED 60MG/TRIPROLIDI 2.5MG TABLET PO PRN (13:57)
[2020-06-12] MEDS ORDERED: ACETAMINOPHEN 325 MG TABLET (FP) PO PRN (13:57)
[2020-06-12] MEDS ORDERED: IBUPROFEN 400 MG TABLET (FP) PO PRN (13:57)
[2020-06-12] MEDS ORDERED: MAGNESIUM CITRATE 300 ML BOTTLE PO PRN (13:57)
[2020-06-12] MEDS ORDERED: MAG HYDROX/AL HYDROX/SIMETH 30 ML UNIT-DOSE CUP PO PRN (13:57)
[2020-06-12] MEDS ORDERED: MENTHOL/PHENOL 1 EACH UD MM PRN (13:57)
[2020-06-12] MEDS ORDERED: MAGNESIUM HYDROX 2400MG/30ML ORAL SUSPENSION 30 ML CUP PO PRN (13:57)
[2020-06-12] MEDS ORDERED: NICOTINE POLACRILEX 2 MG GUM BUC PRN (13:57)
[2020-06-12] MEDS: METHOCARBAMOL 500 MG TABLET PO PRN (18:09)
[2020-06-12] MEDS: NAPROXEN 500 MG TABLET PO SCH (21:17)
[2020-06-12] MEDS: QUEtiapine FUMARATE 50 MG TABLET PO SCH (21:17)
[2020-06-12] MEDS: THIAMINE HCL 100 MG TABLET (FP) PO SCH (21:17)
[2020-06-12] MEDS: MELATONIN 5 MG TABLETS PO SCH (21:17)
[2020-06-12] MEDS: traZODone HCL 50 MG TABLET (FP) PO SCH (21:17)
[2020-06-13] MEDS: METHOCARBAMOL 500 MG TABLET PO PRN (06:24)
[2020-06-13] MEDS: NICOTINE 7 MG/24 HOURS TOPICAL PATCH TD SCH (09:49)
[2020-06-13] MEDS: PRENATAL VITAMINS W/ FOLIC ACID TABLET (FP) PO SCH (09:49)
[2020-06-13] MEDS: NAPROXEN 500 MG TABLET PO SCH ×2 (09:49→21:28)
[2020-06-13] MEDS ORDERED: PNEUMOC 13-VAL CONJ-DIP CRM/PF 0.5 ML DISP.SYRIN IM ONE (11:23)
[2020-06-13] MEDS ORDERED: PNEUMOCOCCAL 23 VACCINE 0.5 ML VIAL IM ONE (12:00)
[2020-06-13 12:03] LABS: HIV INTERPRETATION NEGATIVE (NEGATIVE)
[2020-06-13] MEDS: LORATADINE 10 MG TABLET PO SCH (13:01)
[2020-06-13] MEDS: traZODone HCL 50 MG TABLET (FP) PO SCH (21:28)
[2020-06-13] MEDS: QUEtiapine FUMARATE 50 MG TABLET PO SCH (21:28)
[2020-06-13] MEDS: THIAMINE HCL 100 MG TABLET (FP) PO SCH (21:29)
[2020-06-13] MEDS: METHYL SALICYLATE/MENTHOL OINT 30 GM TUBE TP SCH (21:29)
[2020-06-13] MEDS: MELATONIN 5 MG TABLETS PO SCH (21:29)
[2020-06-14] MEDS: METHOCARBAMOL 500 MG TABLET PO PRN (06:10)
[2020-06-14] MEDS: NAPROXEN 500 MG TABLET PO SCH ×2 (10:02→21:08)
[2020-06-14] MEDS: PRENATAL VITAMINS W/ FOLIC ACID TABLET (FP) PO SCH (10:02)
[2020-06-14] MEDS: LORATADINE 10 MG TABLET PO SCH (10:02)
[2020-06-14] MEDS: METHYL SALICYLATE/MENTHOL OINT 30 GM TUBE TP SCH ×2 (10:03→21:09)
[2020-06-14] MEDS: NICOTINE 7 MG/24 HOURS TOPICAL PATCH TD SCH (10:04)
[2020-06-14] MEDS: THIAMINE HCL 100 MG TABLET (FP) PO SCH (21:08)
[2020-06-14] MEDS: MELATONIN 5 MG TABLETS PO SCH (21:08)
[2020-06-14] MEDS: QUEtiapine FUMARATE 50 MG TABLET PO SCH (21:09)
[2020-06-14] MEDS: traZODone HCL 50 MG TABLET (FP) PO SCH (21:09)
[2020-06-15] MEDS: METHOCARBAMOL 500 MG TABLET PO PRN ×2 (06:46→21:34)
[2020-06-15] MEDS: LORATADINE 10 MG TABLET PO SCH (09:56)
[2020-06-15] MEDS: NICOTINE 7 MG/24 HOURS TOPICAL PATCH TD SCH (09:56)
[2020-06-15] MEDS: NAPROXEN 500 MG TABLET PO SCH (09:56)
[2020-06-15] MEDS: PRENATAL VITAMINS W/ FOLIC ACID TABLET (FP) PO SCH (09:56)
[2020-06-15] MEDS ORDERED: PT OWN MED DRAWER 7, Y5N ONE (09:57)
[2020-06-15] MEDS: METHYL SALICYLATE/MENTHOL OINT 30 GM TUBE TP SCH ×2 (09:57→21:34)
[2020-06-15] MEDS: QUEtiapine FUMARATE 50 MG TABLET PO SCH (21:28)
[2020-06-15] MEDS: traZODone HCL 50 MG TABLET (FP) PO SCH (21:29)
[2020-06-15] MEDS: THIAMINE HCL 100 MG TABLET (FP) PO SCH (21:31)
[2020-06-15] MEDS: MELATONIN 5 MG TABLETS PO SCH (21:32)
[2020-06-16] MEDS: NAPROXEN 500 MG TABLET PO SCH ×2 (06:30→10:08)
[2020-06-16] MEDS: METHYL SALICYLATE/MENTHOL OINT 30 GM TUBE TP SCH ×2 (10:07→21:23)
[2020-06-16] MEDS: PRENATAL VITAMINS W/ FOLIC ACID TABLET (FP) PO SCH (10:08)
[2020-06-16] MEDS: METHOCARBAMOL 500 MG TABLET PO PRN ×2 (10:08→22:10)
[2020-06-16] MEDS: LORATADINE 10 MG TABLET PO SCH (10:08)
[2020-06-16] MEDS: NICOTINE 7 MG/24 HOURS TOPICAL PATCH TD SCH (10:08)
[2020-06-16] MEDS: THIAMINE HCL 100 MG TABLET (FP) PO SCH (21:21)
[2020-06-16] MEDS: traZODone HCL 50 MG TABLET (FP) PO SCH (21:21)
[2020-06-16] MEDS: MELATONIN 5 MG TABLETS PO SCH (21:21)
[2020-06-16] MEDS: QUEtiapine FUMARATE 50 MG TABLET PO SCH (21:21)
[2020-06-17] MEDS: NAPROXEN 500 MG TABLET PO SCH ×2 (06:31→10:08)
[2020-06-17] MEDS: NICOTINE 7 MG/24 HOURS TOPICAL PATCH TD SCH (10:07)
[2020-06-17] MEDS: PRENATAL VITAMINS W/ FOLIC ACID TABLET (FP) PO SCH (10:07)
[2020-06-17] MEDS: LORATADINE 10 MG TABLET PO SCH (10:07)
[2020-06-17] MEDS: METHOCARBAMOL 500 MG TABLET PO PRN (10:08)
[2020-06-17] MEDS: METHYL SALICYLATE/MENTHOL OINT 30 GM TUBE TP SCH ×2 (10:10→21:39)
[2020-06-17] MEDS: THIAMINE HCL 100 MG TABLET (FP) PO SCH (21:32)
[2020-06-17] MEDS: traZODone HCL 50 MG TABLET (FP) PO SCH (21:33)
[2020-06-17] MEDS: MELATONIN 5 MG TABLETS PO SCH (21:33)
[2020-06-17] MEDS: QUEtiapine FUMARATE 50 MG TABLET PO SCH (21:34)
[2020-06-18] MEDS: NAPROXEN 500 MG TABLET PO SCH ×2 (06:35→10:25)
[2020-06-18] MEDS: LORATADINE 10 MG TABLET PO SCH (10:24)
[2020-06-18] MEDS: METHOCARBAMOL 500 MG TABLET PO PRN ×2 (10:24→21:52)
[2020-06-18] MEDS: METHYL SALICYLATE/MENTHOL OINT 30 GM TUBE TP SCH ×2 (10:24→21:52)
[2020-06-18] MEDS: PRENATAL VITAMINS W/ FOLIC ACID TABLET (FP) PO SCH (10:24)
[2020-06-18] MEDS: NICOTINE 7 MG/24 HOURS TOPICAL PATCH TD SCH (10:26)
[2020-06-18] MEDS: QUEtiapine FUMARATE 50 MG TABLET PO SCH (21:50)
[2020-06-18] MEDS: traZODone HCL 50 MG TABLET (FP) PO SCH (21:50)
[2020-06-18] MEDS: THIAMINE HCL 100 MG TABLET (FP) PO SCH (21:52)
[2020-06-18] MEDS: MELATONIN 5 MG TABLETS PO SCH (21:52)
[2020-06-19] MEDS: NAPROXEN 500 MG TABLET PO SCH ×2 (06:19→09:55)
[2020-06-19] MEDS: METHYL SALICYLATE/MENTHOL OINT 30 GM TUBE TP SCH ×2 (09:55→21:32)
[2020-06-19] MEDS: PRENATAL VITAMINS W/ FOLIC ACID TABLET (FP) PO SCH (09:55)
[2020-06-19] MEDS: NICOTINE 7 MG/24 HOURS TOPICAL PATCH TD SCH (09:55)
[2020-06-19] MEDS: LORATADINE 10 MG TABLET PO SCH (09:55)
[2020-06-19] MEDS: METHOCARBAMOL 500 MG TABLET PO PRN ×2 (09:55→21:18)
[2020-06-19] MEDS: traZODone HCL 50 MG TABLET (FP) PO SCH (21:17)
[2020-06-19] MEDS: QUEtiapine FUMARATE 50 MG TABLET PO SCH (21:17)
[2020-06-19] MEDS: THIAMINE HCL 100 MG TABLET (FP) PO SCH (21:18)
[2020-06-19] MEDS: MELATONIN 5 MG TABLETS PO SCH (21:33)
[2020-06-20] MEDS: NAPROXEN 500 MG TABLET PO SCH ×2 (06:33→09:58)
[2020-06-20] MEDS: METHYL SALICYLATE/MENTHOL OINT 30 GM TUBE TP SCH ×2 (09:58→21:25)
[2020-06-20] MEDS: NICOTINE 7 MG/24 HOURS TOPICAL PATCH TD SCH (09:58)
[2020-06-20] MEDS: LORATADINE 10 MG TABLET PO SCH (09:58)
[2020-06-20] MEDS: PRENATAL VITAMINS W/ FOLIC ACID TABLET (FP) PO SCH (09:59)
[2020-06-20] MEDS: SERTRALINE HCL 50 MG TABLET (FP) PO SCH (09:59)
[2020-06-20] MEDS: MELATONIN 5 MG TABLETS PO SCH (21:24)
[2020-06-20] MEDS: QUEtiapine FUMARATE 50 MG TABLET PO SCH (21:24)
[2020-06-20] MEDS: METHOCARBAMOL 500 MG TABLET PO PRN (21:24)
[2020-06-20] MEDS: THIAMINE HCL 100 MG TABLET (FP) PO SCH (21:24)
[2020-06-20] MEDS: traZODone HCL 50 MG TABLET (FP) PO SCH (21:24)
[2020-06-21] MEDS: NAPROXEN 500 MG TABLET PO SCH ×2 (06:07→09:59)
[2020-06-21] MEDS: LORATADINE 10 MG TABLET PO SCH (09:58)
[2020-06-21] MEDS: SERTRALINE HCL 50 MG TABLET (FP) PO SCH (09:59)
[2020-06-21] MEDS: PRENATAL VITAMINS W/ FOLIC ACID TABLET (FP) PO SCH (09:59)
[2020-06-21] MEDS: NICOTINE 7 MG/24 HOURS TOPICAL PATCH TD SCH (09:59)
[2020-06-21] MEDS: METHOCARBAMOL 500 MG TABLET PO PRN ×2 (10:00→21:21)
[2020-06-21] MEDS: METHYL SALICYLATE/MENTHOL OINT 30 GM TUBE TP SCH ×2 (10:01→21:22)
[2020-06-21] MEDS: FLUTICASONE PROP 0.05% 16 GM NASAL SPRAY NS SCH ×2 (11:44→21:22)
[2020-06-21] MEDS: traZODone HCL 50 MG TABLET (FP) PO SCH (21:21)
[2020-06-21] MEDS: MELATONIN 5 MG TABLETS PO SCH (21:21)
[2020-06-21] MEDS: QUEtiapine FUMARATE 50 MG TABLET PO SCH (21:21)
[2020-06-21] MEDS: THIAMINE HCL 100 MG TABLET (FP) PO SCH (21:22)
[2020-06-22] MEDS: NAPROXEN 500 MG TABLET PO SCH ×2 (06:38→10:10)
[2020-06-22] MEDS: FLUTICASONE PROP 0.05% 16 GM NASAL SPRAY NS SCH ×2 (09:53→21:35)
[2020-06-22] MEDS: NICOTINE 7 MG/24 HOURS TOPICAL PATCH TD SCH (09:54)
[2020-06-22] MEDS: SERTRALINE HCL 50 MG TABLET (FP) PO SCH (09:54)
[2020-06-22] MEDS: PRENATAL VITAMINS W/ FOLIC ACID TABLET (FP) PO SCH (09:54)
[2020-06-22] MEDS: LORATADINE 10 MG TABLET PO SCH (09:54)
[2020-06-22] MEDS: METHOCARBAMOL 500 MG TABLET PO PRN ×2 (09:55→21:33)
[2020-06-22] MEDS: METHYL SALICYLATE/MENTHOL OINT 30 GM TUBE TP SCH ×2 (10:10→21:34)
[2020-06-22] MEDS: traZODone HCL 50 MG TABLET (FP) PO SCH (21:33)
[2020-06-22] MEDS: QUEtiapine FUMARATE 50 MG TABLET PO SCH (21:33)
[2020-06-22] MEDS: MELATONIN 5 MG TABLETS PO SCH (21:33)
[2020-06-22] MEDS: THIAMINE HCL 100 MG TABLET (FP) PO SCH (21:34)
[2020-06-23] MEDS: NAPROXEN 500 MG TABLET PO SCH ×2 (06:23→09:51)
[2020-06-23] MEDS: SERTRALINE HCL 50 MG TABLET (FP) PO SCH (09:51)
[2020-06-23] MEDS: PRENATAL VITAMINS W/ FOLIC ACID TABLET (FP) PO SCH (09:51)
[2020-06-23] MEDS: FLUTICASONE PROP 0.05% 16 GM NASAL SPRAY NS SCH ×2 (09:51→21:14)
[2020-06-23] MEDS: NICOTINE 7 MG/24 HOURS TOPICAL PATCH TD SCH (09:51)
[2020-06-23] MEDS: LORATADINE 10 MG TABLET PO SCH (09:51)
[2020-06-23] MEDS: METHYL SALICYLATE/MENTHOL OINT 30 GM TUBE TP SCH ×2 (09:51→21:13)
[2020-06-23] MEDS: METHOCARBAMOL 500 MG TABLET PO PRN ×2 (09:51→21:14)
[2020-06-23] MEDS: QUEtiapine FUMARATE 50 MG TABLET PO SCH (21:12)
[2020-06-23] MEDS: MELATONIN 5 MG TABLETS PO SCH (21:12)
[2020-06-23] MEDS: traZODone HCL 50 MG TABLET (FP) PO SCH (21:12)
[2020-06-23] MEDS: THIAMINE HCL 100 MG TABLET (FP) PO SCH (21:13)
[2020-06-24] MEDS: NAPROXEN 500 MG TABLET PO SCH ×2 (06:20→09:51)
[2020-06-24] MEDS: SERTRALINE HCL 50 MG TABLET (FP) PO SCH (09:51)
[2020-06-24] MEDS: FLUTICASONE PROP 0.05% 16 GM NASAL SPRAY NS SCH ×2 (09:51→21:26)
[2020-06-24] MEDS: NICOTINE 7 MG/24 HOURS TOPICAL PATCH TD SCH (09:51)
[2020-06-24] MEDS: PRENATAL VITAMINS W/ FOLIC ACID TABLET (FP) PO SCH (09:51)
[2020-06-24] MEDS: METHYL SALICYLATE/MENTHOL OINT 30 GM TUBE TP SCH ×2 (09:51→21:26)
[2020-06-24] MEDS: LORATADINE 10 MG TABLET PO SCH (09:51)
[2020-06-24] MEDS: METHOCARBAMOL 500 MG TABLET PO PRN ×2 (09:52→21:28)
[2020-06-24] MEDS: THIAMINE HCL 100 MG TABLET (FP) PO SCH (21:26)
[2020-06-24] MEDS: QUEtiapine FUMARATE 50 MG TABLET PO SCH (21:26)
[2020-06-24] MEDS: MELATONIN 5 MG TABLETS PO SCH (21:26)
[2020-06-24] MEDS: traZODone HCL 50 MG TABLET (FP) PO SCH (21:27)
[2020-06-25] MEDS: NAPROXEN 500 MG TABLET PO SCH ×2 (05:54→09:41)
[2020-06-25] MEDS: PRENATAL VITAMINS W/ FOLIC ACID TABLET (FP) PO SCH (09:41)
[2020-06-25] MEDS: SERTRALINE HCL 50 MG TABLET (FP) PO SCH (09:41)
[2020-06-25] MEDS: METHOCARBAMOL 500 MG TABLET PO PRN ×2 (09:41→21:09)
[2020-06-25] MEDS: LORATADINE 10 MG TABLET PO SCH (09:41)
[2020-06-25] MEDS: FLUTICASONE PROP 0.05% 16 GM NASAL SPRAY NS SCH ×2 (09:42→21:09)
[2020-06-25] MEDS: NICOTINE 7 MG/24 HOURS TOPICAL PATCH TD SCH (09:42)
[2020-06-25] MEDS: METHYL SALICYLATE/MENTHOL OINT 30 GM TUBE TP SCH ×2 (09:42→21:09)
[2020-06-25] MEDS: traZODone HCL 50 MG TABLET (FP) PO SCH (21:08)
[2020-06-25] MEDS: MELATONIN 5 MG TABLETS PO SCH (21:08)
[2020-06-25] MEDS: THIAMINE HCL 100 MG TABLET (FP) PO SCH (21:08)
[2020-06-25] MEDS: QUEtiapine FUMARATE 50 MG TABLET PO SCH (21:08)
[2020-06-26] MEDS: NAPROXEN 500 MG TABLET PO SCH ×2 (06:18→09:28)
[2020-06-26 06:57] VITALS: BP 159/80; PULSE 69; TEMP 97.5
[2020-06-26] MEDS: PRENATAL VITAMINS W/ FOLIC ACID TABLET (FP) PO SCH (09:26)
[2020-06-26] MEDS: SERTRALINE HCL 50 MG TABLET (FP) PO SCH (09:28)
[2020-06-26] MEDS: LORATADINE 10 MG TABLET PO SCH (09:28)
[2020-06-26] MEDS ORDERED: PT OWN MED DRAWER 7, Y5N ONE (09:31)
== END 2020-06-26 09:30 | disposition home or self-care (01) | DRG 772 ==
LOC: YASAS 11:56 → Y3W 11:57
PROVIDERS: ADMIT Allergy & Immunology; ATTEND Allergy & Immunology
PROC: HZ42ZZZ Group Counseling for Substance Abuse Treatment, Cognitive-Behavioral (ICD-10-PCS; principal; 2020-06-12)
DX: F10.20 Alcohol dependence, uncomplicated (principal); F14.20 Cocaine dependence, uncomplicated; F17.210 Nicotine dependence, cigarettes, uncomplicated; F19.282 Other psychoactive substance dependence with psychoactive substance-induced sleep disorder; F19.24 Other psychoactive substance dependence with psychoactive substance-induced mood disorder; F32.9 Major depressive disorder, single episode, unspecified; J45.909 Unspecified asthma, uncomplicated; M19.90 Unspecified osteoarthritis, unspecified site; R09.81 Nasal congestion; Z91.410 Personal history of adult physical and sexual abuse; Z56.0 Unemployment, unspecified; Z59.0 Homelessness
CPT/HCPCS: 36415; 82962; 87389; 90732; C9803; G0008; G0009; U0003

== ENCOUNTER 2020-09-22 10:02 | Inpatient (IN) | payer OTHER ==
[2020-09-22 11:40] VITALS: BMI 25.8
[2020-09-22] MEDS ORDERED: NICOTINE POLACRILEX 2 MG GUM BUC PRN (13:16)
[2020-09-22] MEDS ORDERED: MAGNESIUM CITRATE 300 ML BOTTLE PO PRN (13:16)
[2020-09-22] MEDS ORDERED: ONDANSETRON *ODT* 4 MG TABLET SL PRN (13:16)
[2020-09-22] MEDS ORDERED: MAG HYDROX/AL HYDROX/SIMETH 30 ML UNIT-DOSE CUP PO PRN (13:16)
[2020-09-22] MEDS ORDERED: BISMUTH SUBSALICYLATE 262 MG/15 ML BTL PO PRN (13:16)
[2020-09-22] MEDS ORDERED: MAGNESIUM HYDROX 2400MG/30ML ORAL SUSPENSION 30 ML CUP PO PRN (13:16)
[2020-09-22] MEDS ORDERED: ACETAMINOPHEN 325 MG TABLET (FP) PO PRN ×2 (13:16)
[2020-09-22] MEDS ORDERED: ALBUTEROL SO4 HFA INHALER IH PRN (13:19)
[2020-09-22] MEDS: hydrOXYzine PAMOATE 25 MG CAPSULE (FP) PO SCH ×3 (14:09→22:38)
[2020-09-22] MEDS: chlordiazePOXIDE HCL 25 MG CAPSULE PO PRN (14:09)
[2020-09-22] MEDS: NICOTINE 21 MG/24 HOURS TOPICAL PATCH TD SCH (14:10)
[2020-09-22] MEDS: PRENATAL VITAMINS W/ FOLIC ACID TABLET (FP) PO SCH (14:10)
[2020-09-22 16:25] LABS: HEMATOCRIT 41.4 % (32.4-45.2); HEMOGLOBIN 13.9 GM/dL (10.7-15.3); MCHC 33.5 g/dl (32.0-36.0); MEAN CELL VOLUME 95.4 fl (80-96); MEAN PLT VOLUME 9.1 fl (7.5-11.1); PLATELET COUNT 242 K/MM3 (134-434); RBC 4.34 M/mm3 (3.60-5.2); WHITE BLOOD COUNT 4.2 K/mm3 (4.0-10.0)
[2020-09-22 16:29] LABS: CALCIUM 9.7 mg/dL (8.5-10.1)
[2020-09-22 16:30] LABS: BLOOD UREA NITROGEN 6.9 mg/dL (7-18)
[2020-09-22 16:34] LABS: BILIRUBIN,TOTAL 0.4 mg/dL (0.2-1)
[2020-09-22 16:35] LABS: TOT PROT 8.6 g/dl (6.4-8.2)
[2020-09-22] MEDS: IBUPROFEN 400 MG TABLET (FP) PO PRN (18:01)
[2020-09-22] MEDS: chlordiazePOXIDE HCL 25 MG CAPSULE PO SCH ×2 (18:01→22:33)
[2020-09-22] MEDS: THIAMINE HCL 100 MG TABLET (FP) PO SCH (22:33)
[2020-09-22] MEDS: QUEtiapine FUMARATE 50 MG TABLET PO SCH (22:33)
[2020-09-22] MEDS: traZODone HCL 50 MG TABLET (FP) PO SCH (22:33)
[2020-09-22] MEDS: MENTHOL/PHENOL 1 EACH UD MM PRN (22:35)
[2020-09-22] MEDS: METHOCARBAMOL 500 MG TABLET PO PRN (22:35)
[2020-09-22] MEDS: MELATONIN 5 MG TABLETS PO SCH (22:37)
[2020-09-23] MEDS: IBUPROFEN 400 MG TABLET (FP) PO PRN (05:48)
[2020-09-23] MEDS: MENTHOL/PHENOL 1 EACH UD MM PRN ×2 (05:48→10:18)
[2020-09-23] MEDS: hydrOXYzine PAMOATE 25 MG CAPSULE (FP) PO SCH ×5 (05:48→22:28)
[2020-09-23] MEDS: chlordiazePOXIDE HCL 25 MG CAPSULE PO SCH ×4 (05:49→22:29)
[2020-09-23] MEDS: SERTRALINE HCL 50 MG TABLET (FP) PO SCH (10:15)
[2020-09-23] MEDS: NICOTINE 21 MG/24 HOURS TOPICAL PATCH TD SCH (10:15)
[2020-09-23] MEDS: PRENATAL VITAMINS W/ FOLIC ACID TABLET (FP) PO SCH (10:16)
[2020-09-23] MEDS: LORATADINE 10 MG TABLET PO SCH (10:19)
[2020-09-23] MEDS ORDERED: guaiFENesin 200 MG/10 ML 10 ML UNIT-DOSE CUPS PO PRN (15:02)
[2020-09-23] MEDS: NAPROXEN 375 MG TABLET PO PRN (18:14)
[2020-09-23] MEDS: MELATONIN 5 MG TABLETS PO SCH (22:28)
[2020-09-23] MEDS: traZODone HCL 50 MG TABLET (FP) PO SCH (22:28)
[2020-09-23] MEDS: QUEtiapine FUMARATE 50 MG TABLET PO SCH (22:28)
[2020-09-23] MEDS: THIAMINE HCL 100 MG TABLET (FP) PO SCH (22:28)
[2020-09-24] MEDS: hydrOXYzine PAMOATE 25 MG CAPSULE (FP) PO SCH ×5 (05:49→22:22)
[2020-09-24] MEDS: NAPROXEN 375 MG TABLET PO PRN ×2 (05:50→17:28)
[2020-09-24] MEDS: chlordiazePOXIDE HCL 25 MG CAPSULE PO PRN (05:51)
[2020-09-24] MEDS: chlordiazePOXIDE HCL 25 MG CAPSULE PO SCH ×4 (06:26→22:22)
[2020-09-24] MEDS: PRENATAL VITAMINS W/ FOLIC ACID TABLET (FP) PO SCH (10:41)
[2020-09-24] MEDS: NICOTINE 21 MG/24 HOURS TOPICAL PATCH TD SCH (10:41)
[2020-09-24 11:03] LABS: SGOT/AST 46 U/L (15-37); SGPT/ALT 61 U/L (13-61)
[2020-09-24] MEDS: SERTRALINE HCL 50 MG TABLET (FP) PO SCH (13:59)
[2020-09-24] MEDS: LORATADINE 10 MG TABLET PO SCH (13:59)
[2020-09-24] MEDS: MELATONIN 5 MG TABLETS PO SCH (22:21)
[2020-09-24] MEDS: THIAMINE HCL 100 MG TABLET (FP) PO SCH (22:21)
[2020-09-24] MEDS: QUEtiapine FUMARATE 50 MG TABLET PO SCH (22:21)
[2020-09-24] MEDS: traZODone HCL 50 MG TABLET (FP) PO SCH (22:21)
[2020-09-24] MEDS: METHOCARBAMOL 500 MG TABLET PO PRN (22:22)
[2020-09-25] MEDS ORDERED: chlordiazePOXIDE HCL 10 MG CAPSULE PO PRN
[2020-09-25] MEDS: chlordiazePOXIDE HCL 10 MG CAPSULE PO SCH ×4 (06:31→22:09)
[2020-09-25] MEDS: hydrOXYzine PAMOATE 25 MG CAPSULE (FP) PO SCH ×5 (06:31→22:09)
[2020-09-25] MEDS: LORATADINE 10 MG TABLET PO SCH (10:05)
[2020-09-25] MEDS: NICOTINE 21 MG/24 HOURS TOPICAL PATCH TD SCH (10:06)
[2020-09-25] MEDS: NAPROXEN 375 MG TABLET PO PRN ×3 (10:06→22:11)
[2020-09-25] MEDS: PRENATAL VITAMINS W/ FOLIC ACID TABLET (FP) PO SCH (10:06)
[2020-09-25] MEDS: SERTRALINE HCL 50 MG TABLET (FP) PO SCH (10:11)
[2020-09-25] MEDS: SODIUM CHLORIDE NASAL SPRAY 44 ML BOTTLE NS SCH ×2 (15:16→23:35)
[2020-09-25] MEDS: traZODone HCL 50 MG TABLET (FP) PO SCH (22:09)
[2020-09-25] MEDS: THIAMINE HCL 100 MG TABLET (FP) PO SCH (22:09)
[2020-09-25] MEDS: QUEtiapine FUMARATE 50 MG TABLET PO SCH (22:09)
[2020-09-25] MEDS: MELATONIN 5 MG TABLETS PO SCH (23:35)
[2020-09-26] MEDS: chlordiazePOXIDE HCL 10 MG CAPSULE PO SCH ×2 (06:07→17:33)
[2020-09-26] MEDS: hydrOXYzine PAMOATE 25 MG CAPSULE (FP) PO SCH ×5 (06:08→22:07)
[2020-09-26] MEDS: SODIUM CHLORIDE NASAL SPRAY 44 ML BOTTLE NS SCH ×3 (06:11→22:07)
[2020-09-26] MEDS: NAPROXEN 375 MG TABLET PO PRN ×2 (06:13→22:08)
[2020-09-26] MEDS: PRENATAL VITAMINS W/ FOLIC ACID TABLET (FP) PO SCH (10:04)
[2020-09-26] MEDS: LORATADINE 10 MG TABLET PO SCH (10:04)
[2020-09-26] MEDS: NICOTINE 21 MG/24 HOURS TOPICAL PATCH TD SCH (10:04)
[2020-09-26] MEDS: SERTRALINE HCL 50 MG TABLET (FP) PO SCH (10:05)
[2020-09-26 10:07] LABS: SARS-CoV-2 NAA Not Detected (Not Detected)
[2020-09-26] MEDS: MELATONIN 5 MG TABLETS PO SCH (22:07)
[2020-09-26] MEDS: THIAMINE HCL 100 MG TABLET (FP) PO SCH (22:07)
[2020-09-26] MEDS: QUEtiapine FUMARATE 50 MG TABLET PO SCH (22:07)
[2020-09-26] MEDS: traZODone HCL 50 MG TABLET (FP) PO SCH (22:07)
[2020-09-27] MEDS ORDERED: chlordiazePOXIDE HCL 10 MG CAPSULE PO ONE (05:00)
[2020-09-27] MEDS: SODIUM CHLORIDE NASAL SPRAY 44 ML BOTTLE NS SCH (06:46)
[2020-09-27] MEDS: hydrOXYzine PAMOATE 25 MG CAPSULE (FP) PO SCH ×2 (06:47→10:17)
[2020-09-27] MEDS: NAPROXEN 375 MG TABLET PO PRN (06:48)
[2020-09-27 09:04] VITALS: BP 146/86; PULSE 103; TEMP 97.8
[2020-09-27] MEDS: LORATADINE 10 MG TABLET PO SCH (10:16)
[2020-09-27] MEDS: NICOTINE 21 MG/24 HOURS TOPICAL PATCH TD SCH (10:17)
[2020-09-27] MEDS: PRENATAL VITAMINS W/ FOLIC ACID TABLET (FP) PO SCH (10:17)
[2020-09-27] MEDS: SERTRALINE HCL 50 MG TABLET (FP) PO SCH (10:22)
== END 2020-09-27 11:20 | disposition other institution (70) | DRG 774 ==
LOC: YASAS 10:02 → Y3N 12:28 → Y6N 12:34
PROVIDERS: ADMIT Allergy & Immunology; ATTEND Allergy & Immunology
PROC: HZ2ZZZZ Detoxification Services for Substance Abuse Treatment (ICD-10-PCS; principal; 2020-09-22)
DX: F10.230 Alcohol dependence with withdrawal, uncomplicated (principal); F14.20 Cocaine dependence, uncomplicated; F17.213 Nicotine dependence, cigarettes, with withdrawal; F19.282 Other psychoactive substance dependence with psychoactive substance-induced sleep disorder; F19.24 Other psychoactive substance dependence with psychoactive substance-induced mood disorder; F41.9 Anxiety disorder, unspecified; F32.9 Major depressive disorder, single episode, unspecified; I25.2 Old myocardial infarction; J45.909 Unspecified asthma, uncomplicated; A53.0 Latent syphilis, unspecified as early or late; M19.90 Unspecified osteoarthritis, unspecified site; R74.01 Elevation of levels of liver transaminase levels; Z99.89 Dependence on other enabling machines and devices; Z91.410 Personal history of adult physical and sexual abuse; Z86.79 Personal history of other diseases of the circulatory system; Z87.19 Personal history of other diseases of the digestive system
CPT/HCPCS: 36415; 80053; 81025; 84450; 84460; 85027; 86593; 86780; C9803; U0003; U0005

== ENCOUNTER 2020-09-27 11:29 | Inpatient (IN) | payer OTHER ==
[2020-09-27] MEDS ORDERED: NICOTINE POLACRILEX 2 MG GUM BUC PRN (14:35)
[2020-09-27] MEDS ORDERED: MENTHOL/PHENOL 1 EACH UD MM PRN (14:35)
[2020-09-27] MEDS ORDERED: LOPERAMIDE HCL 2 MG CAPSULE PO PRN (14:35)
[2020-09-27] MEDS ORDERED: MAGNESIUM HYDROX 2400MG/30ML ORAL SUSPENSION 30 ML CUP PO PRN (14:35)
[2020-09-27] MEDS ORDERED: MAGNESIUM CITRATE 300 ML BOTTLE PO PRN (14:35)
[2020-09-27] MEDS ORDERED: IBUPROFEN 400 MG TABLET (FP) PO PRN (14:35)
[2020-09-27] MEDS ORDERED: guaiFENesin 200 MG/10 ML 10 ML UNIT-DOSE CUPS PO PRN (14:35)
[2020-09-27] MEDS ORDERED: ACETAMINOPHEN 325 MG TABLET (FP) PO PRN (14:35)
[2020-09-27] MEDS ORDERED: P-EPHED 60MG/TRIPROLIDI 2.5MG TABLET PO PRN (14:35)
[2020-09-27] MEDS ORDERED: MAG HYDROX/AL HYDROX/SIMETH 30 ML UNIT-DOSE CUP PO PRN (14:35)
[2020-09-27] MEDS ORDERED: ALBUTEROL SO4 HFA INHALER IH PRN (15:01)
[2020-09-27] MEDS: hydrOXYzine PAMOATE 25 MG CAPSULE (FP) PO PRN (18:35)
[2020-09-27] MEDS: QUEtiapine FUMARATE 50 MG TABLET PO SCH (21:32)
[2020-09-27] MEDS: METHOCARBAMOL 500 MG TABLET PO PRN (21:32)
[2020-09-27] MEDS: THIAMINE HCL 100 MG TABLET (FP) PO SCH (21:32)
[2020-09-27] MEDS: MELATONIN 5 MG TABLETS PO SCH (21:32)
[2020-09-27] MEDS: traZODone HCL 50 MG TABLET (FP) PO SCH (21:32)
[2020-09-27] MEDS: NAPROXEN 500 MG TABLET PO SCH (21:33)
[2020-09-28] MEDS: SERTRALINE HCL 50 MG TABLET (FP) PO SCH (10:10)
[2020-09-28] MEDS: NAPROXEN 500 MG TABLET PO SCH ×2 (10:10→21:38)
[2020-09-28] MEDS: PRENATAL VITAMINS W/ FOLIC ACID TABLET (FP) PO SCH (10:11)
[2020-09-28] MEDS: LORATADINE 10 MG TABLET PO SCH (10:11)
[2020-09-28] MEDS: hydrOXYzine PAMOATE 25 MG CAPSULE (FP) PO PRN ×3 (10:11→21:38)
[2020-09-28] MEDS: NICOTINE 7 MG/24 HOURS TOPICAL PATCH TD SCH (10:12)
[2020-09-28] MEDS ORDERED: clonazePAM 0.5 MG ODT TABLETS GT ONE (10:12)
[2020-09-28] MEDS ORDERED: clonazePAM 0.5 MG ODT TABLETS PO SCH (10:15)
[2020-09-28] MEDS: METHYL SALICYLATE/MENTHOL OINT 30 GM TUBE TP SCH ×2 (16:20→22:23)
[2020-09-28] MEDS: THIAMINE HCL 100 MG TABLET (FP) PO SCH (21:38)
[2020-09-28] MEDS: QUEtiapine FUMARATE 50 MG TABLET PO SCH (21:38)
[2020-09-28] MEDS: traZODone HCL 50 MG TABLET (FP) PO SCH (21:38)
[2020-09-28] MEDS: METHOCARBAMOL 500 MG TABLET PO PRN (21:38)
[2020-09-28] MEDS: MELATONIN 5 MG TABLETS PO SCH (21:39)
[2020-09-29] MEDS: NAPROXEN 500 MG TABLET PO SCH ×2 (10:06→21:22)
[2020-09-29] MEDS: SERTRALINE HCL 50 MG TABLET (FP) PO SCH (10:06)
[2020-09-29] MEDS: NICOTINE 7 MG/24 HOURS TOPICAL PATCH TD SCH (10:06)
[2020-09-29] MEDS: PRENATAL VITAMINS W/ FOLIC ACID TABLET (FP) PO SCH (10:06)
[2020-09-29] MEDS: LORATADINE 10 MG TABLET PO SCH (10:06)
[2020-09-29] MEDS: METHYL SALICYLATE/MENTHOL OINT 30 GM TUBE TP SCH ×2 (10:07→21:47)
[2020-09-29] MEDS: MELATONIN 5 MG TABLETS PO SCH (21:22)
[2020-09-29] MEDS: THIAMINE HCL 100 MG TABLET (FP) PO SCH (21:22)
[2020-09-29] MEDS: traZODone HCL 50 MG TABLET (FP) PO SCH (21:22)
[2020-09-29] MEDS: QUEtiapine FUMARATE 50 MG TABLET PO SCH (21:22)
[2020-09-30] MEDS: METHYL SALICYLATE/MENTHOL OINT 30 GM TUBE TP SCH ×2 (10:26→21:59)
[2020-09-30] MEDS: SERTRALINE HCL 50 MG TABLET (FP) PO SCH (10:26)
[2020-09-30] MEDS: NICOTINE 7 MG/24 HOURS TOPICAL PATCH TD SCH (10:26)
[2020-09-30] MEDS: NAPROXEN 500 MG TABLET PO SCH ×2 (10:26→21:30)
[2020-09-30] MEDS: PRENATAL VITAMINS W/ FOLIC ACID TABLET (FP) PO SCH (10:26)
[2020-09-30] MEDS: LORATADINE 10 MG TABLET PO SCH (10:55)
[2020-09-30] MEDS: QUEtiapine FUMARATE 50 MG TABLET PO SCH (21:30)
[2020-09-30] MEDS: METHOCARBAMOL 500 MG TABLET PO PRN (21:30)
[2020-09-30] MEDS: THIAMINE HCL 100 MG TABLET (FP) PO SCH (21:30)
[2020-09-30] MEDS: MELATONIN 5 MG TABLETS PO SCH (21:31)
[2020-09-30] MEDS: hydrOXYzine PAMOATE 25 MG CAPSULE (FP) PO PRN (21:31)
[2020-09-30] MEDS: traZODone HCL 50 MG TABLET (FP) PO SCH (21:31)
[2020-10-01 08:05] LABS: SARS-CoV-2 NAA Not Detected (Not Detected)
[2020-10-01] MEDS: SERTRALINE HCL 50 MG TABLET (FP) PO SCH (10:35)
[2020-10-01] MEDS: NAPROXEN 500 MG TABLET PO SCH ×2 (10:35→21:23)
[2020-10-01] MEDS: PRENATAL VITAMINS W/ FOLIC ACID TABLET (FP) PO SCH (10:35)
[2020-10-01] MEDS: METHYL SALICYLATE/MENTHOL OINT 30 GM TUBE TP SCH ×2 (10:35→23:17)
[2020-10-01] MEDS: LORATADINE 10 MG TABLET PO SCH (10:35)
[2020-10-01] MEDS: NICOTINE 7 MG/24 HOURS TOPICAL PATCH TD SCH (10:37)
[2020-10-01] MEDS: QUEtiapine FUMARATE 50 MG TABLET PO SCH (21:23)
[2020-10-01] MEDS: THIAMINE HCL 100 MG TABLET (FP) PO SCH (21:23)
[2020-10-01] MEDS: traZODone HCL 50 MG TABLET (FP) PO SCH (21:23)
[2020-10-01] MEDS: MELATONIN 5 MG TABLETS PO SCH (21:23)
[2020-10-02 07:08] VITALS: BP 119/71; PULSE 65; TEMP 97.2
[2020-10-02] MEDS: PRENATAL VITAMINS W/ FOLIC ACID TABLET (FP) PO SCH (09:17)
[2020-10-02] MEDS: SERTRALINE HCL 50 MG TABLET (FP) PO SCH (09:17)
[2020-10-02] MEDS: LORATADINE 10 MG TABLET PO SCH (09:17)
[2020-10-02] MEDS: NAPROXEN 500 MG TABLET PO SCH (09:17)
[2020-10-02] MEDS: NICOTINE 7 MG/24 HOURS TOPICAL PATCH TD SCH (09:18)
[2020-10-02] MEDS: METHYL SALICYLATE/MENTHOL OINT 30 GM TUBE TP SCH (09:18)
== END 2020-10-02 09:40 | disposition home or self-care (01) | DRG 772 ==
LOC: YASAS 11:29 → Y5N 11:30
PROVIDERS: ADMIT Allergy & Immunology; ATTEND Allergy & Immunology
PROC: HZ42ZZZ Group Counseling for Substance Abuse Treatment, Cognitive-Behavioral (ICD-10-PCS; principal; 2020-09-27)
DX: F10.20 Alcohol dependence, uncomplicated (principal); F14.20 Cocaine dependence, uncomplicated; F17.210 Nicotine dependence, cigarettes, uncomplicated; F32.9 Major depressive disorder, single episode, unspecified; J45.909 Unspecified asthma, uncomplicated; M19.90 Unspecified osteoarthritis, unspecified site; Z99.89 Dependence on other enabling machines and devices
CPT/HCPCS: C9803; U0003; U0005

== ENCOUNTER 2020-11-03 12:51 | Inpatient (IN) | payer OTHER ==
[2020-11-03] MEDS ORDERED: ALBUTEROL SO4 HFA INHALER IH PRN (16:06)
[2020-11-03] MEDS ORDERED: MAG HYDROX/AL HYDROX/SIMETH 30 ML UNIT-DOSE CUP PO PRN (16:07)
[2020-11-03] MEDS ORDERED: BISMUTH SUBSALICYLATE 524 MG/30 ML PO PRN (16:07)
[2020-11-03] MEDS ORDERED: hydrOXYzine PAMOATE 25 MG CAPSULE (FP) PO PRN (16:07)
[2020-11-03] MEDS ORDERED: ACETAMINOPHEN 325 MG TABLET (FP) PO PRN ×2 (16:07)
[2020-11-03] MEDS ORDERED: MAGNESIUM HYDROX 2400MG/30ML ORAL SUSPENSION 30 ML CUP PO PRN (16:07)
[2020-11-03] MEDS ORDERED: MAGNESIUM CITRATE 300 ML BOTTLE PO PRN (16:07)
[2020-11-03] MEDS ORDERED: MENTHOL/PHENOL 1 EACH UD MM PRN (16:07)
[2020-11-03] MEDS ORDERED: diazePAM 5 MG TABLET PO PRN (16:09)
[2020-11-03 16:19] VITALS: BMI 22.6
[2020-11-03] MEDS ORDERED: ONDANSETRON *ODT* 4 MG TABLET ONE (16:45)
[2020-11-03] MEDS: ONDANSETRON *ODT* 4 MG TABLET SL PRN (16:46)
[2020-11-03] MEDS: diazePAM 5 MG TABLET PO SCH ×2 (17:24→22:21)
[2020-11-03] MEDS ORDERED: MELATONIN 5 MG TABLETS PO SCH (22:00)
[2020-11-03] MEDS: THIAMINE HCL 100 MG TABLET (FP) PO SCH (22:21)
[2020-11-03] MEDS: traZODone HCL 50 MG TABLET (FP) PO SCH (22:21)
[2020-11-03] MEDS: NAPROXEN 500 MG TABLET PO SCH (22:21)
[2020-11-04] MEDS: diazePAM 5 MG TABLET PO SCH ×4 (05:50→22:14)
[2020-11-04] MEDS: NAPROXEN 500 MG TABLET PO SCH ×2 (10:07→22:13)
[2020-11-04] MEDS: PRENATAL VITAMINS W/ FOLIC ACID TABLET (FP) PO SCH (10:07)
[2020-11-04] MEDS: NICOTINE 14 MG/24 HOURS TOPICAL PATCH TD SCH (10:08)
[2020-11-04] MEDS: ONDANSETRON *ODT* 4 MG TABLET SL PRN (10:11)
[2020-11-04] MEDS: SERTRALINE HCL 50 MG TABLET (FP) PO SCH (10:49)
[2020-11-04 11:17] LABS: HEMATOCRIT 36.4 % (32.4-45.2); HEMOGLOBIN 12.4 GM/dL (10.7-15.3); MEAN PLT VOLUME 9.1 fl (7.5-11.1); PLATELET COUNT 152 K/MM3 (134-434); RBC 3.87 M/mm3 (3.60-5.2); RDW 12.8 % (11.6-15.6); WHITE BLOOD COUNT 3.2 K/mm3 (4.0-10.0)
[2020-11-04 11:26] LABS: ALBUMIN 3.4 g/dl (3.4-5.0); BLOOD UREA NITROGEN 6.7 mg/dL (7-18); CALCIUM 8.8 mg/dL (8.5-10.1)
[2020-11-04 11:29] LABS: CREATININE 0.9 mg/dL (0.55-1.3)
[2020-11-04 11:31] LABS: BILIRUBIN,TOTAL 1.2 mg/dL (0.2-1); TOT PROT 6.9 g/dl (6.4-8.2)
[2020-11-04] MEDS: traZODone HCL 50 MG TABLET (FP) PO SCH (22:13)
[2020-11-04] MEDS: QUEtiapine FUMARATE 50 MG TABLET PO SCH (22:13)
[2020-11-04] MEDS: THIAMINE HCL 100 MG TABLET (FP) PO SCH (22:13)
[2020-11-05] MEDS: diazePAM 5 MG TABLET PO SCH ×3 (06:19→22:11)
[2020-11-05] MEDS: NAPROXEN 500 MG TABLET PO SCH ×2 (10:15→22:10)
[2020-11-05] MEDS: PRENATAL VITAMINS W/ FOLIC ACID TABLET (FP) PO SCH (10:15)
[2020-11-05] MEDS: SERTRALINE HCL 50 MG TABLET (FP) PO SCH (10:15)
[2020-11-05] MEDS: METHOCARBAMOL 500 MG TABLET PO PRN ×2 (10:15→22:10)
[2020-11-05] MEDS: NICOTINE 14 MG/24 HOURS TOPICAL PATCH TD SCH (10:15)
[2020-11-05] MEDS: LORATADINE 10 MG TABLET PO SCH (15:38)
[2020-11-05] MEDS: traZODone HCL 50 MG TABLET (FP) PO SCH (22:10)
[2020-11-05] MEDS: QUEtiapine FUMARATE 50 MG TABLET PO SCH (22:10)
[2020-11-05] MEDS: THIAMINE HCL 100 MG TABLET (FP) PO SCH (22:10)
[2020-11-06] MEDS: diazePAM 5 MG TABLET PO SCH ×2 (05:32→17:32)
[2020-11-06] MEDS: LORATADINE 10 MG TABLET PO SCH (10:09)
[2020-11-06] MEDS: NAPROXEN 500 MG TABLET PO SCH ×2 (10:09→22:11)
[2020-11-06] MEDS: SERTRALINE HCL 50 MG TABLET (FP) PO SCH (10:09)
[2020-11-06] MEDS: NICOTINE 14 MG/24 HOURS TOPICAL PATCH TD SCH (10:10)
[2020-11-06] MEDS: PRENATAL VITAMINS W/ FOLIC ACID TABLET (FP) PO SCH (10:10)
[2020-11-06] MEDS: THIAMINE HCL 100 MG TABLET (FP) PO SCH (22:11)
[2020-11-06] MEDS: traZODone HCL 50 MG TABLET (FP) PO SCH (22:11)
[2020-11-06] MEDS: QUEtiapine FUMARATE 50 MG TABLET PO SCH (22:12)
[2020-11-07] MEDS ORDERED: diazePAM 5 MG TABLET PO ONE (06:00)
[2020-11-07] MEDS: SERTRALINE HCL 50 MG TABLET (FP) PO SCH (10:45)
[2020-11-07] MEDS: LORATADINE 10 MG TABLET PO SCH (10:45)
[2020-11-07] MEDS: PRENATAL VITAMINS W/ FOLIC ACID TABLET (FP) PO SCH (10:45)
[2020-11-07] MEDS: NAPROXEN 500 MG TABLET PO SCH (10:45)
[2020-11-07] MEDS: NICOTINE 14 MG/24 HOURS TOPICAL PATCH TD SCH (10:45)
[2020-11-07 12:58] VITALS: BP 153/79; PULSE 88; TEMP 97.8
[2020-11-07] MEDS ORDERED: MAGNESIUM CITRATE 300 ML BOTTLE PO PRN (17:54)
[2020-11-07] MEDS ORDERED: MENTHOL/PHENOL 1 EACH UD MM PRN (17:54)
[2020-11-07] MEDS ORDERED: P-EPHED 60MG/TRIPROLIDI 2.5MG TABLET PO PRN (17:54)
[2020-11-07] MEDS ORDERED: MAG HYDROX/AL HYDROX/SIMETH 30 ML UNIT-DOSE CUP PO PRN (17:54)
[2020-11-07] MEDS ORDERED: IBUPROFEN 400 MG TABLET (FP) PO PRN (17:54)
[2020-11-07] MEDS ORDERED: ACETAMINOPHEN 325 MG TABLET (FP) PO PRN (17:54)
[2020-11-07] MEDS ORDERED: NICOTINE POLACRILEX 2 MG GUM BUC PRN (17:54)
[2020-11-07] MEDS ORDERED: LOPERAMIDE HCL 2 MG CAPSULE PO PRN (17:54)
[2020-11-07] MEDS ORDERED: MAGNESIUM HYDROX 2400MG/30ML ORAL SUSPENSION 30 ML CUP PO PRN (17:54)
[2020-11-07] MEDS ORDERED: guaiFENesin 200 MG/10 ML 10 ML UNIT-DOSE CUPS PO PRN (17:54)
[2020-11-07] MEDS ORDERED: hydrOXYzine PAMOATE 25 MG CAPSULE (FP) PO SCH (18:00)
[2020-11-07] MEDS ORDERED: traZODone HCL 50 MG TABLET (FP) PO SCH (22:00)
[2020-11-07] MEDS ORDERED: QUEtiapine FUMARATE 50 MG TABLET PO SCH (22:00)
[2020-11-07] MEDS ORDERED: MELATONIN 5 MG TABLETS PO SCH (22:00)
[2020-11-07] MEDS ORDERED: THIAMINE HCL 100 MG TABLET (FP) PO SCH (22:00)
[2020-11-08] MEDS ORDERED: PRENATAL VITAMINS W/ FOLIC ACID TABLET (FP) PO SCH (10:00)
[2020-11-08] MEDS ORDERED: LORATADINE 10 MG TABLET PO SCH (10:00)
[2020-11-08] MEDS ORDERED: NICOTINE 14 MG/24 HOURS TOPICAL PATCH TD SCH (10:00)
== END 2020-11-07 13:43 | disposition other institution (70) | DRG 774 ==
LOC: YASAS 12:51 → Y6N 16:54
PROVIDERS: ADMIT Allergy & Immunology; ATTEND Allergy & Immunology
PROC: HZ2ZZZZ Detoxification Services for Substance Abuse Treatment (ICD-10-PCS; principal; 2020-11-03)
DX: F10.230 Alcohol dependence with withdrawal, uncomplicated (principal); F14.20 Cocaine dependence, uncomplicated; F17.210 Nicotine dependence, cigarettes, uncomplicated; F19.282 Other psychoactive substance dependence with psychoactive substance-induced sleep disorder; F19.24 Other psychoactive substance dependence with psychoactive substance-induced mood disorder; F41.9 Anxiety disorder, unspecified; F32.9 Major depressive disorder, single episode, unspecified; J45.909 Unspecified asthma, uncomplicated; K74.60 Unspecified cirrhosis of liver; D72.819 Decreased white blood cell count, unspecified; R74.01 Elevation of levels of liver transaminase levels; M19.90 Unspecified osteoarthritis, unspecified site; M25.662 Stiffness of left knee, not elsewhere classified; M25.661 Stiffness of right knee, not elsewhere classified; Z86.19 Personal history of other infectious and parasitic diseases; Z99.89 Dependence on other enabling machines and devices; Z59.0 Homelessness
CPT/HCPCS: 36415; 80053; 81025; 82962; 85027; 86593; 86780; C9803; Q0162; U0003; U0005

== ENCOUNTER 2020-11-07 13:54 | Inpatient (IN) | payer OTHER ==
[2020-11-07] MEDS ORDERED: IBUPROFEN 400 MG TABLET (FP) PO PRN (18:14)
[2020-11-07] MEDS ORDERED: LOPERAMIDE HCL 2 MG CAPSULE PO PRN (18:15)
[2020-11-07] MEDS ORDERED: MENTHOL/PHENOL 1 EACH UD MM PRN (18:17)
[2020-11-07] MEDS ORDERED: NICOTINE POLACRILEX 2 MG GUM BUC PRN (18:17)
[2020-11-07] MEDS ORDERED: MAGNESIUM HYDROX 2400MG/30ML ORAL SUSPENSION 30 ML CUP PO PRN (18:18)
[2020-11-07] MEDS ORDERED: MAGNESIUM CITRATE 300 ML BOTTLE PO PRN (18:18)
[2020-11-07] MEDS ORDERED: MAG HYDROX/AL HYDROX/SIMETH 30 ML UNIT-DOSE CUP PO PRN (18:19)
[2020-11-07] MEDS ORDERED: guaiFENesin 200 MG/10 ML 10 ML UNIT-DOSE CUPS PO PRN (18:19)
[2020-11-07] MEDS ORDERED: P-EPHED 60MG/TRIPROLIDI 2.5MG TABLET PO PRN (18:21)
[2020-11-07] MEDS: traZODone HCL 50 MG TABLET (FP) PO SCH (21:30)
[2020-11-07] MEDS: THIAMINE HCL 100 MG TABLET (FP) PO SCH (21:30)
[2020-11-07] MEDS: QUEtiapine FUMARATE 50 MG TABLET PO SCH (21:30)
[2020-11-07] MEDS: MELATONIN 5 MG TABLETS PO SCH (21:30)
[2020-11-07] MEDS: hydrOXYzine PAMOATE 25 MG CAPSULE (FP) PO SCH (21:30)
[2020-11-07] MEDS ORDERED: THIAMINE HCL 100 MG TABLET (FP) PO SCH (22:00)
[2020-11-08] MEDS: hydrOXYzine PAMOATE 25 MG CAPSULE (FP) PO SCH ×5 (06:19→21:22)
[2020-11-08] MEDS: LORATADINE 10 MG TABLET PO SCH (10:28)
[2020-11-08] MEDS: PRENATAL VITAMINS W/ FOLIC ACID TABLET (FP) PO SCH (10:28)
[2020-11-08] MEDS: NICOTINE 14 MG/24 HOURS TOPICAL PATCH TD SCH (10:28)
[2020-11-08] MEDS: METHYL SALICYLATE/MENTHOL OINT 30 GM TUBE TP SCH ×2 (10:30→21:23)
[2020-11-08] MEDS: METHOCARBAMOL 500 MG TABLET PO PRN ×2 (10:31→21:22)
[2020-11-08] MEDS: NAPROXEN 500 MG TABLET PO SCH ×2 (10:31→21:22)
[2020-11-08] MEDS: MELATONIN 5 MG TABLETS PO SCH (21:22)
[2020-11-08] MEDS: QUEtiapine FUMARATE 50 MG TABLET PO SCH (21:22)
[2020-11-08] MEDS: THIAMINE HCL 100 MG TABLET (FP) PO SCH (21:22)
[2020-11-08] MEDS: traZODone HCL 50 MG TABLET (FP) PO SCH (21:22)
[2020-11-09] MEDS: hydrOXYzine PAMOATE 25 MG CAPSULE (FP) PO SCH ×2 (06:26→10:47)
[2020-11-09] MEDS: PRENATAL VITAMINS W/ FOLIC ACID TABLET (FP) PO SCH (10:45)
[2020-11-09] MEDS: LORATADINE 10 MG TABLET PO SCH (10:45)
[2020-11-09] MEDS: NAPROXEN 500 MG TABLET PO SCH ×2 (10:45→21:57)
[2020-11-09] MEDS: NICOTINE 14 MG/24 HOURS TOPICAL PATCH TD SCH (10:45)
[2020-11-09] MEDS: METHYL SALICYLATE/MENTHOL OINT 30 GM TUBE TP SCH ×2 (10:48→21:58)
[2020-11-09] MEDS: MELATONIN 5 MG TABLETS PO SCH (21:57)
[2020-11-09] MEDS: THIAMINE HCL 100 MG TABLET (FP) PO SCH (21:57)
[2020-11-09] MEDS: traZODone HCL 50 MG TABLET (FP) PO SCH (21:57)
[2020-11-09] MEDS: QUEtiapine FUMARATE 50 MG TABLET PO SCH (21:58)
[2020-11-10] MEDS: hydrOXYzine PAMOATE 25 MG CAPSULE (FP) PO PRN (06:22)
[2020-11-10] MEDS: METHOCARBAMOL 500 MG TABLET PO PRN ×2 (06:22→17:54)
[2020-11-10] MEDS: NAPROXEN 500 MG TABLET PO SCH ×2 (10:31→21:59)
[2020-11-10] MEDS: LORATADINE 10 MG TABLET PO SCH (10:31)
[2020-11-10] MEDS: PRENATAL VITAMINS W/ FOLIC ACID TABLET (FP) PO SCH (10:31)
[2020-11-10] MEDS: METHYL SALICYLATE/MENTHOL OINT 30 GM TUBE TP SCH ×2 (10:31→22:00)
[2020-11-10] MEDS: NICOTINE 14 MG/24 HOURS TOPICAL PATCH TD SCH (10:32)
[2020-11-10] MEDS: THIAMINE HCL 100 MG TABLET (FP) PO SCH (21:58)
[2020-11-10] MEDS: MELATONIN 5 MG TABLETS PO SCH (21:58)
[2020-11-10] MEDS: QUEtiapine FUMARATE 50 MG TABLET PO SCH (21:59)
[2020-11-10] MEDS: traZODone HCL 50 MG TABLET (FP) PO SCH (21:59)
[2020-11-11] MEDS: hydrOXYzine PAMOATE 25 MG CAPSULE (FP) PO PRN ×2 (07:11→21:22)
[2020-11-11] MEDS: METHOCARBAMOL 500 MG TABLET PO PRN (07:11)
[2020-11-11] MEDS: PRENATAL VITAMINS W/ FOLIC ACID TABLET (FP) PO SCH (10:38)
[2020-11-11] MEDS: NAPROXEN 500 MG TABLET PO SCH ×2 (10:39→21:21)
[2020-11-11] MEDS: METHYL SALICYLATE/MENTHOL OINT 30 GM TUBE TP SCH ×2 (10:39→21:21)
[2020-11-11] MEDS: LORATADINE 10 MG TABLET PO SCH (10:39)
[2020-11-11] MEDS: NICOTINE 14 MG/24 HOURS TOPICAL PATCH TD SCH (10:39)
[2020-11-11 14:08] LABS: SARS-CoV-2 NAA Not Detected (Not Detected)
[2020-11-11] MEDS: QUEtiapine FUMARATE 50 MG TABLET PO SCH (21:21)
[2020-11-11] MEDS: THIAMINE HCL 100 MG TABLET (FP) PO SCH (21:21)
[2020-11-11] MEDS: MELATONIN 5 MG TABLETS PO SCH (21:21)
[2020-11-11] MEDS: traZODone HCL 50 MG TABLET (FP) PO SCH (21:21)
[2020-11-12] MEDS: hydrOXYzine PAMOATE 25 MG CAPSULE (FP) PO PRN ×3 (06:20→21:51)
[2020-11-12] MEDS: METHOCARBAMOL 500 MG TABLET PO PRN (06:20)
[2020-11-12] MEDS: METHYL SALICYLATE/MENTHOL OINT 30 GM TUBE TP SCH ×2 (10:34→21:51)
[2020-11-12] MEDS: NAPROXEN 500 MG TABLET PO SCH ×2 (10:35→21:51)
[2020-11-12] MEDS: LORATADINE 10 MG TABLET PO SCH (10:35)
[2020-11-12] MEDS: PRENATAL VITAMINS W/ FOLIC ACID TABLET (FP) PO SCH (10:35)
[2020-11-12] MEDS: NICOTINE 14 MG/24 HOURS TOPICAL PATCH TD SCH (10:35)
[2020-11-12] MEDS: MELATONIN 5 MG TABLETS PO SCH (21:50)
[2020-11-12] MEDS: THIAMINE HCL 100 MG TABLET (FP) PO SCH (21:50)
[2020-11-12] MEDS: traZODone HCL 50 MG TABLET (FP) PO SCH (21:51)
[2020-11-12] MEDS: QUEtiapine FUMARATE 50 MG TABLET PO SCH (21:51)
[2020-11-13] MEDS: hydrOXYzine PAMOATE 25 MG CAPSULE (FP) PO PRN ×3 (06:29→21:51)
[2020-11-13] MEDS: METHOCARBAMOL 500 MG TABLET PO PRN (06:29)
[2020-11-13] MEDS: ACETAMINOPHEN 325 MG TABLET (FP) PO PRN (06:30)
[2020-11-13] MEDS: NAPROXEN 500 MG TABLET PO SCH ×2 (10:41→21:51)
[2020-11-13] MEDS: NICOTINE 14 MG/24 HOURS TOPICAL PATCH TD SCH (10:41)
[2020-11-13] MEDS: LORATADINE 10 MG TABLET PO SCH (10:41)
[2020-11-13] MEDS: PRENATAL VITAMINS W/ FOLIC ACID TABLET (FP) PO SCH (10:41)
[2020-11-13] MEDS: METHYL SALICYLATE/MENTHOL OINT 30 GM TUBE TP SCH ×2 (10:41→21:52)
[2020-11-13] MEDS: QUEtiapine FUMARATE 50 MG TABLET PO SCH (21:51)
[2020-11-13] MEDS: THIAMINE HCL 100 MG TABLET (FP) PO SCH (21:51)
[2020-11-13] MEDS: traZODone HCL 50 MG TABLET (FP) PO SCH (21:51)
[2020-11-13] MEDS: MELATONIN 5 MG TABLETS PO SCH (21:51)
[2020-11-14] MEDS: METHOCARBAMOL 500 MG TABLET PO PRN (06:29)
[2020-11-14] MEDS: hydrOXYzine PAMOATE 25 MG CAPSULE (FP) PO PRN ×3 (06:29→21:45)
[2020-11-14] MEDS: NICOTINE 14 MG/24 HOURS TOPICAL PATCH TD SCH (10:27)
[2020-11-14] MEDS: NAPROXEN 500 MG TABLET PO SCH ×2 (10:27→21:44)
[2020-11-14] MEDS: PRENATAL VITAMINS W/ FOLIC ACID TABLET (FP) PO SCH (10:27)
[2020-11-14] MEDS: LORATADINE 10 MG TABLET PO SCH (10:27)
[2020-11-14] MEDS: METHYL SALICYLATE/MENTHOL OINT 30 GM TUBE TP SCH ×2 (10:27→21:45)
[2020-11-14] MEDS: MELATONIN 5 MG TABLETS PO SCH (21:44)
[2020-11-14] MEDS: THIAMINE HCL 100 MG TABLET (FP) PO SCH (21:44)
[2020-11-14] MEDS: QUEtiapine FUMARATE 50 MG TABLET PO SCH (21:45)
[2020-11-14] MEDS: traZODone HCL 50 MG TABLET (FP) PO SCH (21:45)
[2020-11-14] MEDS: FLUTICASONE PROP 0.05% 16 GM NASAL SPRAY NS SCH (21:46)
[2020-11-15] MEDS: METHOCARBAMOL 500 MG TABLET PO PRN (06:19)
[2020-11-15] MEDS: hydrOXYzine PAMOATE 25 MG CAPSULE (FP) PO PRN ×3 (06:19→21:30)
[2020-11-15] MEDS: FLUTICASONE PROP 0.05% 16 GM NASAL SPRAY NS SCH ×2 (10:30→21:29)
[2020-11-15] MEDS: PRENATAL VITAMINS W/ FOLIC ACID TABLET (FP) PO SCH (10:30)
[2020-11-15] MEDS: METHYL SALICYLATE/MENTHOL OINT 30 GM TUBE TP SCH ×2 (10:30→21:30)
[2020-11-15] MEDS: NAPROXEN 500 MG TABLET PO SCH ×2 (10:31→21:30)
[2020-11-15] MEDS: LORATADINE 10 MG TABLET PO SCH (10:31)
[2020-11-15] MEDS: NICOTINE 14 MG/24 HOURS TOPICAL PATCH TD SCH (10:31)
[2020-11-15] MEDS ORDERED: PT OWN MED DRAWER 7, Y5N ONE (21:26)
[2020-11-15] MEDS: QUEtiapine FUMARATE 50 MG TABLET PO SCH (21:30)
[2020-11-15] MEDS: THIAMINE HCL 100 MG TABLET (FP) PO SCH (21:30)
[2020-11-15] MEDS: MELATONIN 5 MG TABLETS PO SCH (21:31)
[2020-11-15] MEDS: traZODone HCL 50 MG TABLET (FP) PO SCH (21:31)
[2020-11-16] MEDS: hydrOXYzine PAMOATE 25 MG CAPSULE (FP) PO PRN ×3 (06:52→21:24)
[2020-11-16] MEDS: METHOCARBAMOL 500 MG TABLET PO PRN (06:52)
[2020-11-16] MEDS: METHYL SALICYLATE/MENTHOL OINT 30 GM TUBE TP SCH ×2 (10:12→22:20)
[2020-11-16] MEDS: NAPROXEN 500 MG TABLET PO SCH ×2 (10:13→21:24)
[2020-11-16] MEDS: LORATADINE 10 MG TABLET PO SCH (10:13)
[2020-11-16] MEDS: PRENATAL VITAMINS W/ FOLIC ACID TABLET (FP) PO SCH (10:14)
[2020-11-16] MEDS: NICOTINE 14 MG/24 HOURS TOPICAL PATCH TD SCH (10:14)
[2020-11-16] MEDS: FLUTICASONE PROP 0.05% 16 GM NASAL SPRAY NS SCH ×2 (10:16→21:24)
[2020-11-16] MEDS ORDERED: PT OWN MED DRAWER 7, Y5N ONE (21:23)
[2020-11-16] MEDS: traZODone HCL 50 MG TABLET (FP) PO SCH (21:24)
[2020-11-16] MEDS: MELATONIN 5 MG TABLETS PO SCH (21:24)
[2020-11-16] MEDS: THIAMINE HCL 100 MG TABLET (FP) PO SCH (21:24)
[2020-11-16] MEDS: QUEtiapine FUMARATE 50 MG TABLET PO SCH (21:24)
[2020-11-17] MEDS: METHOCARBAMOL 500 MG TABLET PO PRN ×2 (06:45→21:14)
[2020-11-17] MEDS: ACETAMINOPHEN 325 MG TABLET (FP) PO PRN (06:46)
[2020-11-17] MEDS: hydrOXYzine PAMOATE 25 MG CAPSULE (FP) PO PRN ×3 (06:47→21:14)
[2020-11-17] MEDS: PRENATAL VITAMINS W/ FOLIC ACID TABLET (FP) PO SCH (10:31)
[2020-11-17] MEDS: NAPROXEN 500 MG TABLET PO SCH ×2 (10:32→21:14)
[2020-11-17] MEDS: LORATADINE 10 MG TABLET PO SCH (10:32)
[2020-11-17] MEDS: METHYL SALICYLATE/MENTHOL OINT 30 GM TUBE TP SCH ×2 (10:32→21:15)
[2020-11-17] MEDS: NICOTINE 14 MG/24 HOURS TOPICAL PATCH TD SCH (10:32)
[2020-11-17] MEDS: FLUTICASONE PROP 0.05% 16 GM NASAL SPRAY NS SCH ×2 (10:32→21:15)
[2020-11-17] MEDS: traZODone HCL 50 MG TABLET (FP) PO SCH (21:14)
[2020-11-17] MEDS: MELATONIN 5 MG TABLETS PO SCH (21:14)
[2020-11-17] MEDS: THIAMINE HCL 100 MG TABLET (FP) PO SCH (21:14)
[2020-11-17] MEDS: QUEtiapine FUMARATE 50 MG TABLET PO SCH (21:14)
[2020-11-18] MEDS: ACETAMINOPHEN 325 MG TABLET (FP) PO PRN ×2 (06:17→10:49)
[2020-11-18] MEDS: METHOCARBAMOL 500 MG TABLET PO PRN (06:17)
[2020-11-18] MEDS: hydrOXYzine PAMOATE 25 MG CAPSULE (FP) PO PRN ×3 (06:18→21:14)
[2020-11-18] MEDS: PRENATAL VITAMINS W/ FOLIC ACID TABLET (FP) PO SCH (10:00)
[2020-11-18] MEDS: LORATADINE 10 MG TABLET PO SCH (10:01)
[2020-11-18] MEDS: NAPROXEN 500 MG TABLET PO SCH ×2 (10:01→21:12)
[2020-11-18] MEDS: NICOTINE 14 MG/24 HOURS TOPICAL PATCH TD SCH (10:02)
[2020-11-18] MEDS: FLUTICASONE PROP 0.05% 16 GM NASAL SPRAY NS SCH ×2 (10:03→21:15)
[2020-11-18] MEDS: METHYL SALICYLATE/MENTHOL OINT 30 GM TUBE TP SCH ×2 (10:20→21:12)
[2020-11-18] MEDS ORDERED: PT OWN MED DRAWER 7, Y5N ONE (19:47)
[2020-11-18] MEDS: THIAMINE HCL 100 MG TABLET (FP) PO SCH (21:12)
[2020-11-18] MEDS: QUEtiapine FUMARATE 50 MG TABLET PO SCH (21:12)
[2020-11-18] MEDS: traZODone HCL 50 MG TABLET (FP) PO SCH (21:12)
[2020-11-18] MEDS: MELATONIN 5 MG TABLETS PO SCH (21:12)
[2020-11-19] MEDS: hydrOXYzine PAMOATE 25 MG CAPSULE (FP) PO PRN ×3 (06:01→21:25)
[2020-11-19] MEDS: ACETAMINOPHEN 325 MG TABLET (FP) PO PRN ×2 (06:01→13:38)
[2020-11-19] MEDS: METHOCARBAMOL 500 MG TABLET PO PRN (06:01)
[2020-11-19] MEDS: PRENATAL VITAMINS W/ FOLIC ACID TABLET (FP) PO SCH (10:07)
[2020-11-19] MEDS: NAPROXEN 500 MG TABLET PO SCH ×2 (10:07→21:22)
[2020-11-19] MEDS: LORATADINE 10 MG TABLET PO SCH (10:07)
[2020-11-19] MEDS: NICOTINE 14 MG/24 HOURS TOPICAL PATCH TD SCH (10:08)
[2020-11-19] MEDS: METHYL SALICYLATE/MENTHOL OINT 30 GM TUBE TP SCH ×2 (10:08→21:22)
[2020-11-19] MEDS: FLUTICASONE PROP 0.05% 16 GM NASAL SPRAY NS SCH ×2 (10:09→21:22)
[2020-11-19] MEDS ORDERED: PT OWN MED DRAWER 7, Y5N ONE (20:25)
[2020-11-19] MEDS: QUEtiapine FUMARATE 50 MG TABLET PO SCH (21:22)
[2020-11-19] MEDS: traZODone HCL 50 MG TABLET (FP) PO SCH (21:22)
[2020-11-19] MEDS: MELATONIN 5 MG TABLETS PO SCH (21:22)
[2020-11-19] MEDS: THIAMINE HCL 100 MG TABLET (FP) PO SCH (21:23)
[2020-11-20] MEDS: METHOCARBAMOL 500 MG TABLET PO PRN ×2 (06:39→21:30)
[2020-11-20] MEDS: ACETAMINOPHEN 325 MG TABLET (FP) PO PRN ×2 (06:39→16:01)
[2020-11-20] MEDS: hydrOXYzine PAMOATE 25 MG CAPSULE (FP) PO PRN ×3 (06:39→21:30)
[2020-11-20] MEDS: PRENATAL VITAMINS W/ FOLIC ACID TABLET (FP) PO SCH (10:13)
[2020-11-20] MEDS: METHYL SALICYLATE/MENTHOL OINT 30 GM TUBE TP SCH ×2 (10:13→21:30)
[2020-11-20] MEDS: FLUTICASONE PROP 0.05% 16 GM NASAL SPRAY NS SCH ×2 (10:13→21:29)
[2020-11-20] MEDS: NAPROXEN 500 MG TABLET PO SCH ×2 (10:14→21:31)
[2020-11-20] MEDS: NICOTINE 14 MG/24 HOURS TOPICAL PATCH TD SCH (10:14)
[2020-11-20] MEDS: LORATADINE 10 MG TABLET PO SCH (10:14)
[2020-11-20] MEDS: QUEtiapine FUMARATE 50 MG TABLET PO SCH (21:30)
[2020-11-20] MEDS: THIAMINE HCL 100 MG TABLET (FP) PO SCH (21:30)
[2020-11-20] MEDS: traZODone HCL 50 MG TABLET (FP) PO SCH (21:31)
[2020-11-20] MEDS: MELATONIN 5 MG TABLETS PO SCH (21:31)
[2020-11-21] MEDS: hydrOXYzine PAMOATE 25 MG CAPSULE (FP) PO PRN (06:24)
[2020-11-21] MEDS: ACETAMINOPHEN 325 MG TABLET (FP) PO PRN (06:25)
[2020-11-21] MEDS: METHOCARBAMOL 500 MG TABLET PO PRN (06:25)
[2020-11-21 07:21] VITALS: BP 134/90; PULSE 78; TEMP 97.1
[2020-11-21] MEDS: METHYL SALICYLATE/MENTHOL OINT 30 GM TUBE TP SCH (09:14)
[2020-11-21] MEDS: PRENATAL VITAMINS W/ FOLIC ACID TABLET (FP) PO SCH (09:14)
[2020-11-21] MEDS: NAPROXEN 500 MG TABLET PO SCH (09:15)
[2020-11-21] MEDS: NICOTINE 14 MG/24 HOURS TOPICAL PATCH TD SCH (09:15)
[2020-11-21] MEDS: FLUTICASONE PROP 0.05% 16 GM NASAL SPRAY NS SCH (09:15)
[2020-11-21] MEDS: LORATADINE 10 MG TABLET PO SCH (09:15)
== END 2020-11-21 09:35 | disposition home or self-care (01) | DRG 772 ==
LOC: YASAS 13:54 → Y5N 13:56
PROVIDERS: ADMIT Allergy & Immunology; ATTEND Allergy & Immunology
PROC: HZ42ZZZ Group Counseling for Substance Abuse Treatment, Cognitive-Behavioral (ICD-10-PCS; principal; 2020-11-07)
DX: F10.20 Alcohol dependence, uncomplicated (principal); F14.20 Cocaine dependence, uncomplicated; F17.210 Nicotine dependence, cigarettes, uncomplicated; F32.9 Major depressive disorder, single episode, unspecified; F41.9 Anxiety disorder, unspecified; J45.909 Unspecified asthma, uncomplicated; M25.561 Pain in right knee; G89.29 Other chronic pain; Z86.19 Personal history of other infectious and parasitic diseases; Z99.89 Dependence on other enabling machines and devices
CPT/HCPCS: 82962; 93005; 93010; C9803; U0003; U0005

== ENCOUNTER 2022-05-07 08:34 | Inpatient (IN) | payer OTHER ==
[2022-05-07 10:19] VITALS: BMI 28.3
[2022-05-07] MEDS ORDERED: chlordiazePOXIDE HCL 25 MG CAPSULE PO PRN (11:27)
[2022-05-07] MEDS ORDERED: MAGNESIUM HYDROX 2400MG/30ML ORAL SUSPENSION 30 ML CUP PO PRN (11:27)
[2022-05-07] MEDS ORDERED: NALOXONE HCL (KLOXXADO) 8 MG SPRAY NS PRN (11:27)
[2022-05-07] MEDS ORDERED: MAG HYDROX/AL HYDROX/SIMETH 30 ML UNIT-DOSE CUP PO PRN (11:27)
[2022-05-07] MEDS ORDERED: LOPERAMIDE HCL 2 MG CAPSULE PO PRN (11:27)
[2022-05-07] MEDS ORDERED: POLYETHYLENE GLYCOL (HEALTHYLAX) 3350 17 GM PACKET PO PRN (11:27)
[2022-05-07] MEDS ORDERED: NICOTINE 10 MG CARTRIDGE (INHALER) IH PRN (11:27)
[2022-05-07] MEDS ORDERED: ACETAMINOPHEN 325 MG TABLET (FP) PO PRN ×2 (11:27)
[2022-05-07] MEDS ORDERED: BENZOCAINE/MENTHOL (CHLORASEPTIC ) LOZENGE MM PRN (11:27)
[2022-05-07] MEDS ORDERED: BISMUTH SUBSALICYLATE 262 MG/15 ML BTL PO PRN (11:27)
[2022-05-07] MEDS ORDERED: ONDANSETRON *ODT* 4 MG TABLET SL PRN (11:27)
[2022-05-07] MEDS ORDERED: DICYCLOMINE HCL 10 MG CAPSULE PO PRN (11:27)
[2022-05-07] MEDS ORDERED: ALBUTEROL SO4 HFA INHALER IH PRN (11:34)
[2022-05-07] MEDS: NAPROXEN 500 MG TABLET PO SCH ×2 (13:00→22:28)
[2022-05-07] MEDS: hydrOXYzine PAMOATE 25 MG CAPSULE (FP) PO PRN ×2 (13:00→18:04)
[2022-05-07] MEDS: METHOCARBAMOL 500 MG TABLET PO PRN ×2 (13:00→18:05)
[2022-05-07] MEDS: NICOTINE 21 MG/24 HOURS TOPICAL PATCH TD SCH (13:07)
[2022-05-07] MEDS: chlordiazePOXIDE HCL 25 MG CAPSULE PO SCH ×2 (18:04→22:28)
[2022-05-07] MEDS ORDERED: MELATONIN 5 MG TABLETS PO SCH (22:00)
[2022-05-07] MEDS: THIAMINE HCL 100 MG TABLET (FP) PO SCH (22:28)
[2022-05-08] MEDS: chlordiazePOXIDE HCL 25 MG CAPSULE PO SCH ×4 (05:27→22:06)
[2022-05-08] MEDS: NAPROXEN 500 MG TABLET PO SCH ×2 (10:27→22:06)
[2022-05-08] MEDS: PRENATAL VITAMINS W/ FOLIC ACID TABLET (FP) PO SCH (10:27)
[2022-05-08] MEDS: NICOTINE 21 MG/24 HOURS TOPICAL PATCH TD SCH (10:27)
[2022-05-08] MEDS: SERTRALINE HCL 50 MG TABLET (FP) PO SCH (12:38)
[2022-05-08] MEDS ORDERED: guaiFENesin 200 MG/10 ML 10 ML UNIT-DOSE CUPS PO PRN ×2 (14:24→14:46)
[2022-05-08] MEDS ORDERED: ALBUTEROL SO4 HFA INHALER IH PRN (14:25)
[2022-05-08 14:48] LABS: HEMATOCRIT 40.4 % (32.4-45.2); HEMOGLOBIN 13.5 GM/dL (10.7-15.3); MCH 31.5 pg (25.7-33.7); MCHC 33.5 g/dl (32.0-36.0); MEAN PLT VOLUME 9.3 fl (7.5-11.1); PLATELET COUNT 209 10^3/uL (134-434); RDW 12.9 % (11.6-15.6); WHITE BLOOD COUNT 3.6 K/mm3 (4.0-10.0)
[2022-05-08 14:52] LABS: ALBUMIN 3.3 g/dl (3.4-5.0); BLOOD UREA NITROGEN 10.6 mg/dL (7-18); CALCIUM 9.3 mg/dL (8.5-10.1)
[2022-05-08 14:56] LABS: CREATININE 1.1 mg/dL (0.55-1.3)
[2022-05-08 14:57] LABS: BILIRUBIN,TOTAL 0.8 mg/dL (0.2-1)
[2022-05-08] MEDS: LORATADINE 10 MG TABLET PO SCH (15:48)
[2022-05-08] MEDS: hydrOXYzine PAMOATE 25 MG CAPSULE (FP) PO PRN ×2 (16:43→22:06)
[2022-05-08] MEDS: METHOCARBAMOL 500 MG TABLET PO PRN (16:43)
[2022-05-08] MEDS: FLUTICASONE PROP 0.05% 16 GM NASAL SPRAY NS SCH (22:05)
[2022-05-08] MEDS: THIAMINE HCL 100 MG TABLET (FP) PO SCH (22:06)
[2022-05-08] MEDS: QUEtiapine FUMARATE 50 MG TABLET PO SCH (22:06)
[2022-05-09] MEDS: chlordiazePOXIDE HCL 25 MG CAPSULE PO SCH ×2 (06:58→10:00)
[2022-05-09] MEDS: LORATADINE 10 MG TABLET PO SCH (09:52)
[2022-05-09] MEDS: NAPROXEN 500 MG TABLET PO SCH ×2 (09:52→22:44)
[2022-05-09] MEDS: SERTRALINE HCL 50 MG TABLET (FP) PO SCH (09:52)
[2022-05-09] MEDS: PRENATAL VITAMINS W/ FOLIC ACID TABLET (FP) PO SCH (09:52)
[2022-05-09] MEDS: NICOTINE 21 MG/24 HOURS TOPICAL PATCH TD SCH (09:54)
[2022-05-09] MEDS: FLUTICASONE PROP 0.05% 16 GM NASAL SPRAY NS SCH ×2 (11:12→22:44)
[2022-05-09] MEDS ORDERED: LORazepam 1 MG TABLET PO PRN (12:55)
[2022-05-09] MEDS: POTASSIUM CHLORIDE ORAL LIQUID 20 MEQ/15 ML PO SCH ×2 (13:55→22:44)
[2022-05-09] MEDS: hydrOXYzine PAMOATE 25 MG CAPSULE (FP) PO PRN (18:11)
[2022-05-09] MEDS: METHOCARBAMOL 500 MG TABLET PO PRN (18:12)
[2022-05-09] MEDS: LORazepam 2 MG TABLET PO SCH ×2 (18:12→22:45)
[2022-05-09] MEDS ORDERED: POTASSIUM CHLORIDE ORAL LIQUID 20 MEQ/15 ML PO SCH (22:00)
[2022-05-09] MEDS: THIAMINE HCL 100 MG TABLET (FP) PO SCH (22:44)
[2022-05-09] MEDS: QUEtiapine FUMARATE 50 MG TABLET PO SCH (22:44)
[2022-05-10] MEDS ORDERED: chlordiazePOXIDE HCL 10 MG CAPSULE PO PRN
[2022-05-10] MEDS ORDERED: chlordiazePOXIDE HCL 10 MG CAPSULE PO SCH (05:00)
[2022-05-10] MEDS: LORazepam 1 MG TABLET PO SCH ×4 (06:22→23:02)
[2022-05-10] MEDS: LORATADINE 10 MG TABLET PO SCH (10:32)
[2022-05-10] MEDS: SERTRALINE HCL 50 MG TABLET (FP) PO SCH (10:32)
[2022-05-10] MEDS: PRENATAL VITAMINS W/ FOLIC ACID TABLET (FP) PO SCH (10:32)
[2022-05-10] MEDS: FLUTICASONE PROP 0.05% 16 GM NASAL SPRAY NS SCH ×2 (10:32→22:46)
[2022-05-10] MEDS: NAPROXEN 500 MG TABLET PO SCH ×2 (10:32→23:02)
[2022-05-10] MEDS: NICOTINE 21 MG/24 HOURS TOPICAL PATCH TD SCH (10:34)
[2022-05-10] MEDS: THIAMINE HCL 100 MG TABLET (FP) PO SCH (23:02)
[2022-05-10] MEDS: QUEtiapine FUMARATE 50 MG TABLET PO SCH (23:02)
[2022-05-11] MEDS ORDERED: LORazepam 0.5 MG TABLET PO PRN
[2022-05-11] MEDS ORDERED: chlordiazePOXIDE HCL 10 MG CAPSULE PO SCH (05:00)
[2022-05-11] MEDS: LORazepam 0.5 MG TABLET PO SCH ×4 (06:34→22:33)
[2022-05-11] MEDS: PRENATAL VITAMINS W/ FOLIC ACID TABLET (FP) PO SCH (11:15)
[2022-05-11] MEDS: LORATADINE 10 MG TABLET PO SCH (11:15)
[2022-05-11] MEDS: NAPROXEN 500 MG TABLET PO SCH ×2 (11:15→22:33)
[2022-05-11] MEDS: SERTRALINE HCL 50 MG TABLET (FP) PO SCH (11:15)
[2022-05-11] MEDS: FLUTICASONE PROP 0.05% 16 GM NASAL SPRAY NS SCH ×2 (11:16→22:34)
[2022-05-11] MEDS: NICOTINE 21 MG/24 HOURS TOPICAL PATCH TD SCH (11:16)
[2022-05-11] MEDS: METHOCARBAMOL 500 MG TABLET PO PRN (17:20)
[2022-05-11] MEDS: hydrOXYzine PAMOATE 25 MG CAPSULE (FP) PO PRN (17:20)
[2022-05-11] MEDS: THIAMINE HCL 100 MG TABLET (FP) PO SCH (22:33)
[2022-05-11] MEDS: QUEtiapine FUMARATE 50 MG TABLET PO SCH (22:33)
[2022-05-12] MEDS ORDERED: chlordiazePOXIDE HCL 10 MG CAPSULE PO ONE (05:00)
[2022-05-12] MEDS ORDERED: LORazepam 0.5 MG TABLET PO ONE ×2 (05:00→06:30)
[2022-05-12] MEDS: NAPROXEN 500 MG TABLET PO SCH ×2 (10:43→22:40)
[2022-05-12] MEDS: SERTRALINE HCL 50 MG TABLET (FP) PO SCH (10:43)
[2022-05-12] MEDS: FLUTICASONE PROP 0.05% 16 GM NASAL SPRAY NS SCH ×2 (10:43→22:41)
[2022-05-12] MEDS: NICOTINE 21 MG/24 HOURS TOPICAL PATCH TD SCH (10:43)
[2022-05-12] MEDS: LORATADINE 10 MG TABLET PO SCH (10:43)
[2022-05-12] MEDS: PRENATAL VITAMINS W/ FOLIC ACID TABLET (FP) PO SCH (10:43)
[2022-05-12] MEDS: THIAMINE HCL 100 MG TABLET (FP) PO SCH (22:40)
[2022-05-12] MEDS: QUEtiapine FUMARATE 50 MG TABLET PO SCH (22:40)
[2022-05-12] MEDS: hydrOXYzine PAMOATE 25 MG CAPSULE (FP) PO PRN (22:41)
[2022-05-13] MEDS: LORATADINE 10 MG TABLET PO SCH (12:06)
[2022-05-13] MEDS: FLUTICASONE PROP 0.05% 16 GM NASAL SPRAY NS SCH ×2 (12:06→22:05)
[2022-05-13] MEDS: SERTRALINE HCL 50 MG TABLET (FP) PO SCH (12:06)
[2022-05-13] MEDS: PRENATAL VITAMINS W/ FOLIC ACID TABLET (FP) PO SCH (12:06)
[2022-05-13] MEDS: NAPROXEN 500 MG TABLET PO SCH ×2 (12:06→22:04)
[2022-05-13] MEDS: NICOTINE 21 MG/24 HOURS TOPICAL PATCH TD SCH (12:07)
[2022-05-13 21:16] VITALS: RESP 18
[2022-05-13] MEDS: QUEtiapine FUMARATE 50 MG TABLET PO SCH (22:04)
[2022-05-13] MEDS: hydrOXYzine PAMOATE 25 MG CAPSULE (FP) PO PRN (22:04)
[2022-05-13] MEDS: THIAMINE HCL 100 MG TABLET (FP) PO SCH (22:05)
[2022-05-14] MEDS: SERTRALINE HCL 50 MG TABLET (FP) PO SCH (09:52)
[2022-05-14] MEDS: LORATADINE 10 MG TABLET PO SCH (09:52)
[2022-05-14] MEDS: NAPROXEN 500 MG TABLET PO SCH ×2 (09:52→22:03)
[2022-05-14] MEDS: PRENATAL VITAMINS W/ FOLIC ACID TABLET (FP) PO SCH (09:52)
[2022-05-14] MEDS: NICOTINE 21 MG/24 HOURS TOPICAL PATCH TD SCH (09:53)
[2022-05-14] MEDS: FLUTICASONE PROP 0.05% 16 GM NASAL SPRAY NS SCH ×2 (09:53→22:02)
[2022-05-14] MEDS: QUEtiapine FUMARATE 50 MG TABLET PO SCH (22:03)
[2022-05-14] MEDS: THIAMINE HCL 100 MG TABLET (FP) PO SCH (22:03)
[2022-05-15] MEDS: PRENATAL VITAMINS W/ FOLIC ACID TABLET (FP) PO SCH (09:40)
[2022-05-15] MEDS: NAPROXEN 500 MG TABLET PO SCH ×2 (09:41→22:30)
[2022-05-15] MEDS: LORATADINE 10 MG TABLET PO SCH (09:41)
[2022-05-15] MEDS: SERTRALINE HCL 50 MG TABLET (FP) PO SCH (09:41)
[2022-05-15] MEDS: FLUTICASONE PROP 0.05% 16 GM NASAL SPRAY NS SCH ×2 (09:41→22:45)
[2022-05-15] MEDS: NICOTINE 21 MG/24 HOURS TOPICAL PATCH TD SCH (09:45)
[2022-05-15 21:31] VITALS: PULSE 63
[2022-05-15] MEDS: THIAMINE HCL 100 MG TABLET (FP) PO SCH (22:30)
[2022-05-15] MEDS: QUEtiapine FUMARATE 50 MG TABLET PO SCH (22:30)
[2022-05-16 06:23] VITALS: BP 118/69; TEMP 97.3
[2022-05-16] MEDS: LORATADINE 10 MG TABLET PO SCH (09:00)
[2022-05-16] MEDS: SERTRALINE HCL 50 MG TABLET (FP) PO SCH (09:00)
[2022-05-16] MEDS: NICOTINE 21 MG/24 HOURS TOPICAL PATCH TD SCH (09:00)
[2022-05-16] MEDS: NAPROXEN 500 MG TABLET PO SCH (09:00)
[2022-05-16] MEDS: FLUTICASONE PROP 0.05% 16 GM NASAL SPRAY NS SCH (09:00)
[2022-05-16] MEDS: PRENATAL VITAMINS W/ FOLIC ACID TABLET (FP) PO SCH (09:00)
== END 2022-05-16 09:19 | disposition home or self-care (01) | DRG 774 ==
LOC: YASAS 08:34 → Y6N 12:30
PROVIDERS: ADMIT Allergy & Immunology; ATTEND Surgery
PROC: HZ2ZZZZ Detoxification Services for Substance Abuse Treatment (ICD-10-PCS; principal; 2022-05-07)
DX: F10.230 Alcohol dependence with withdrawal, uncomplicated (principal); F14.20 Cocaine dependence, uncomplicated; F17.210 Nicotine dependence, cigarettes, uncomplicated; F33.9 Major depressive disorder, recurrent, unspecified; F19.24 Other psychoactive substance dependence with psychoactive substance-induced mood disorder; F19.282 Other psychoactive substance dependence with psychoactive substance-induced sleep disorder; I10 Essential (primary) hypertension; J45.909 Unspecified asthma, uncomplicated; U07.1 COVID-19; M17.0 Bilateral primary osteoarthritis of knee; M25.562 Pain in left knee; M25.561 Pain in right knee; G89.29 Other chronic pain; R26.2 Difficulty in walking, not elsewhere classified; Z99.89 Dependence on other enabling machines and devices; Z86.19 Personal history of other infectious and parasitic diseases; Z56.0 Unemployment, unspecified
CPT/HCPCS: 36415; 80053; 81025; 83036; 84132; 84450; 85027; 86593; 86780; 87811; C9803-CS; Q0162; U0003; U0005

== ENCOUNTER 2022-09-16 09:33 | Inpatient (IN) | payer OTHER ==
[2022-09-16] MEDS ORDERED: MAG HYDROX/AL HYDROX/SIMETH 30 ML UNIT-DOSE CUP PO PRN (10:15)
[2022-09-16] MEDS ORDERED: LOPERAMIDE HCL 2 MG CAPSULE PO PRN (10:15)
[2022-09-16] MEDS ORDERED: BENZONATATE 200 MG CAPSULE PO PRN (10:15)
[2022-09-16] MEDS ORDERED: ONDANSETRON *ODT* 4 MG TABLET SL PRN (10:15)
[2022-09-16] MEDS ORDERED: guaiFENesin 600 MG TABLET.ER (FP) PO PRN (10:15)
[2022-09-16] MEDS ORDERED: IBUPROFEN 400 MG TABLET (FP) PO PRN (10:15)
[2022-09-16] MEDS ORDERED: POLYETHYLENE GLYCOL (HEALTHYLAX) 3350 17 GM PACKET PO PRN (10:15)
[2022-09-16] MEDS ORDERED: BENZOCAINE/MENTHOL (CHLORASEPTIC ) LOZENGE MM PRN (10:15)
[2022-09-16] MEDS ORDERED: IBUPROFEN 600 MG TABLET (FP) PO PRN (10:15)
[2022-09-16] MEDS ORDERED: BISMUTH SUBSALICYLATE 524 MG/30 ML PO PRN (10:15)
[2022-09-16] MEDS ORDERED: MAGNESIUM HYDROX 2400MG/30ML ORAL SUSPENSION 30 ML CUP PO PRN (10:15)
[2022-09-16] MEDS ORDERED: ACETAMINOPHEN 325 MG TABLET (FP) PO PRN (10:15)
[2022-09-16] MEDS ORDERED: NICOTINE 10 MG CARTRIDGE (INHALER) IH PRN (10:15)
[2022-09-16] MEDS ORDERED: DICYCLOMINE HCL 10 MG CAPSULE PO PRN (10:15)
[2022-09-16] MEDS ORDERED: ALBUTEROL SO4 HFA INHALER IH PRN (10:21)
[2022-09-16 10:23] VITALS: BMI 30.7
[2022-09-16] MEDS ORDERED: NICOTINE POLACRILEX 4 MG GUM BUC PRN (10:27)
[2022-09-16] MEDS ORDERED: NICOTINE 21 MG/24 HOURS TOPICAL PATCH TD PRN (10:27)
[2022-09-16] MEDS ORDERED: LORazepam 1 MG TABLET PO PRN (10:28)
[2022-09-16] MEDS ORDERED: LORazepam 2 MG TABLET ONE (11:09)
[2022-09-16] MEDS: LORazepam 2 MG TABLET PO SCH ×3 (11:19→22:33)
[2022-09-16] MEDS: METHOCARBAMOL 500 MG TABLET PO PRN ×2 (11:55→17:25)
[2022-09-16] MEDS: cloNIDine HCL 0.1 MG TABLET PO PRN (11:55)
[2022-09-16 12:46] LABS: ALBUMIN 3.8 g/dl (3.4-5.0); BLOOD UREA NITROGEN 8.3 mg/dL (7-18); CALCIUM 9.3 mg/dL (8.5-10.1)
[2022-09-16 12:49] LABS: CREATININE 1.1 mg/dL (0.55-1.3); HEMATOCRIT 40.5 % (32.4-45.2); HEMOGLOBIN 13.8 GM/dL (10.7-15.3); MCH 32.6 pg (25.7-33.7); MEAN CELL VOLUME 95.7 fl (80-96); MEAN PLT VOLUME 9.3 fl (7.5-11.1); PLATELET COUNT 170 10^3/uL (134-434); RBC 4.23 M/mm3 (3.60-5.2); RDW 13.1 % (11.6-15.6); WHITE BLOOD COUNT 3.5 K/mm3 (4.0-10.0)
[2022-09-16 12:51] LABS: BILIRUBIN,TOTAL 0.6 mg/dL (0.2-1); TOT PROT 8.5 g/dl (6.4-8.2)
[2022-09-16] MEDS: hydrOXYzine PAMOATE 25 MG CAPSULE (FP) PO PRN ×2 (17:26→22:34)
[2022-09-16] MEDS ORDERED: MELATONIN 5 MG TABLETS PO SCH (22:00)
[2022-09-16] MEDS: THIAMINE HCL 100 MG TABLET (FP) PO SCH (22:33)
[2022-09-16] MEDS: QUEtiapine FUMARATE 50 MG TABLET PO SCH (22:33)
[2022-09-17] MEDS: LORazepam 2 MG TABLET PO SCH ×4 (05:20→22:18)
[2022-09-17] MEDS: PRENATAL VITAMINS W/ FOLIC ACID TABLET (FP) PO SCH (10:17)
[2022-09-17] MEDS: hydrOXYzine PAMOATE 25 MG CAPSULE (FP) PO PRN (10:17)
[2022-09-17] MEDS: THIAMINE HCL 100 MG TABLET (FP) PO SCH (22:18)
[2022-09-17] MEDS: QUEtiapine FUMARATE 50 MG TABLET PO SCH (22:18)
[2022-09-18] MEDS: LORazepam 1 MG TABLET PO SCH ×4 (05:53→22:10)
[2022-09-18] MEDS: PRENATAL VITAMINS W/ FOLIC ACID TABLET (FP) PO SCH (10:09)
[2022-09-18] MEDS: cloNIDine HCL 0.1 MG TABLET PO PRN (10:12)
[2022-09-18] MEDS ORDERED: COLLOIDAL OATMEAL 1 BAR EACH TP PRN (13:33)
[2022-09-18 17:19] VITALS: RESP 18
[2022-09-18] MEDS: THIAMINE HCL 100 MG TABLET (FP) PO SCH (22:10)
[2022-09-18] MEDS: QUEtiapine FUMARATE 50 MG TABLET PO SCH (22:10)
[2022-09-18] MEDS: hydrOXYzine PAMOATE 25 MG CAPSULE (FP) PO PRN (22:11)
[2022-09-18] MEDS: METHOCARBAMOL 500 MG TABLET PO PRN (22:11)
[2022-09-19] MEDS ORDERED: LORazepam 0.5 MG TABLET PO PRN
[2022-09-19] MEDS ORDERED: LORazepam 0.5 MG TABLET PO SCH (05:00)
[2022-09-19 09:39] VITALS: BP 153/81; PULSE 94; TEMP 97.1
[2022-09-20] MEDS ORDERED: LORazepam 0.5 MG TABLET PO ONE (05:00)
== END 2022-09-19 09:48 | disposition home or self-care (01) | DRG 774 ==
LOC: YASAS 09:33 → Y6N 11:28
PROVIDERS: ADMIT Allergy & Immunology; ATTEND Surgery
PROC: HZ2ZZZZ Detoxification Services for Substance Abuse Treatment (ICD-10-PCS; principal; 2022-09-16)
DX: F10.230 Alcohol dependence with withdrawal, uncomplicated (principal); F14.20 Cocaine dependence, uncomplicated; F12.20 Cannabis dependence, uncomplicated; F17.213 Nicotine dependence, cigarettes, with withdrawal; F32.A Depression, unspecified; I10 Essential (primary) hypertension; M17.0 Bilateral primary osteoarthritis of knee; J30.2 Other seasonal allergic rhinitis; Z87.09 Personal history of other diseases of the respiratory system; Z99.89 Dependence on other enabling machines and devices
CPT/HCPCS: 36415; 80053; 81025; 85027; 86593; 86780; 87811; C9803-CS; Q0162; U0003; U0005